=== PATIENT | female | born 1990 | race African-American/Black ===

== ENCOUNTER 2021-10-16 09:04 | Emergency (ER) | payer OTHER ==
--- OUTSIDE RECORDS SUMMARY | 2021-10-16 09:10 | XMS REPORT | Continuity of Care Document ---
:1990 Author Organization [facility] t Address [address] [place] [address] Care Team Providers Name Role Phone CAT Primary Care Physician Unavailable Semaj Attending Clinician Unavailable BECERRA, S Attending Clinician Unavailable Jayden WALDEN, S Attending Clinician Rutmeg_L Attending Clinician Unavailable JEREMIE Attending Clinician Unavailable Semaj Admitting Clinician Unavailable Rutledge_L Admitting Clinician Unavailable JEREMIE Admitting Clinician Unavailable Payers Payer Name Policy Type Policy Number Effective Date Expiration Date S reed [facility] PLUS [id number] 2021 00:00:00 [facility] [id number] 2018 COMMUNITY PLAN [place] 00:00:00 (MEDICAID HMO) [facility] 90 PRE-EMPLOYMENT Problems Condition Condition Condition Status Onset Resolution Last Treating Co mments Source Name Details Category Date Date Treatment Clinician Date COVID-19 Covid-19 Problem Active 2020-05 [place] 2-30 da 00:00: Medical 00 Group Twin Twin Problem Active 2018-05 [place] 1-21 da 00:00: Medical 00 Group Chromosome Chromosome Problem Active 2018-05 M [facility] abnormalit Abnormalit 1-21 da y y 00:00: Medical screening Screening 00 Grou p Dichorioni Dichorioni Problem Active 2018-05 M [place] c c 0-23 da diamniotic Diamniotic 00:00: Me dical twin Twin 00 Group Urine Urine Problem Active 2018-05 [place] 0-04 da test Test 00:00: Medical positive Positive 00 Group Group B Group B Problem Active [place] Streptococ Streptococ 4-19 da cus cus 00:00: Medical carrier Carrier 00 Group Vaginal Vaginal Disease Active Univers spotting spotting 7-31 ity of 00:00: [place] 00 Medical [place] Conduct Conduct Disease Active Univers disorder, disorder, 2-07 ity of adolescent [place] onset type onset type 00 Ut dical Branch 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 Group Allergies, Adverse Reactions, Alerts Allergy Allergy Status Severity Reaction(s) Onset Inactive Treating Comm ents Source Name Type Date Date Clinician seafood DA Active SV throat [facility] swelling 3-25 [facility] 00:[facility]: [facility] [place] AVOCADO Allergy Active Facial [place] to swelling da [facility] Medical e Group Shrimp Allergy Active Facial [place] to swelling da [facility] Medical e Group NO KNOWN Drug Active Univers ALLERGIE Class ity of S [facility] Social History Social Habit Start Date Stop Date Quantity Comments Source Exposure to Not sure [facility] SARS-CoV-2 (event) Medica l Branch Sex Assigned At [birth year] [facility] 00:00:00 00:00:00 [facility] Smoking Status Start Date Stop Date Source Unknown if ever smoked [facility] Never Smoker [facility] Medications Ordered Filled Start Stop Current Ordering Indication Dosage Frequency Signature Comments Components Source Medication Medication Date Date Medication? Clinician (SIG) Name Name No known No Univers medications 2-23 ity of 18:57: [place] 44 [facility] aripiprazol aripiprazol No aripiprazo [place] e 10 mg e 10 mg le 10 mg da tablet TAKE tablet TAKE tablet Medical ONE (1) ONE (1) TAKE ONE Group TABLET(S) TABLET(S) (1) BY MOUTH AT BY MOUTH AT TABLET(S) BEDTIME. BEDTIME. BY MOUTH AT BEDTIME. escitalopra escitalopra No escitalopr [place] m 5 mg m 5 mg am 5 mg da tablet TAKE tablet TAKE tablet Medical ONE (1) ONE (1) TAKE ONE Group TABLET BY TABLET BY (1) TABLET MOUTH AT MOUTH AT BY MOUTH BEDTIME BEDTIME AT BEDTIME hydroxyzine hydroxyzine No hydroxyzin [place] HCl 25 mg HCl 25 mg e HCl 25 d a tablet TAKE tablet TAKE mg tablet Medical ONE (1) ONE (1) TAKE ONE Group TABLET BY TABLET BY (1) TABLET MOUTH THREE MOUTH THREE BY MOUTH TIMES A TIMES A THREE DAY, DAY, TIMES A NEEDED. NEEDED. DAY, NEEDED. Vital Signs Vital Name Observation Time Observation Value Comments Source Systolic blood 2021-07-11 00:24:00 112 mm[facility]Hg[facility] Diastolic blood 2021-07-11 00:24:00 48 mm[facility]Hg[facility] Heart rate 2021-07-11 00:24:00 70 /min [facility] Body temperature 2021-07-11 00:24:00 37.17 Ije [facility] Respiratory rate 2021-07-11 00:24:00 18 /min [facility] Body weight 2021-07-11 00:24:00 115.667 kg [facility] BMI 2021-07-11 00:24:00 39.94 kg/m2 [facility] Oxygen saturation in 2021-07-11 00:24:00 99 /min [facility] Arterial blood by [facility] Pulse oximetry Branch Height 2021-05-15 00:00:00 67 [in_i] [facility] BMI (Body Mass 2021-05-15 00:00:00 42.3 kg/m2 [facility] 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) Group Body Weight 2021-05-15 00:00:00 4320 [oz_av] [facility] BP Diastolic 2019-09-07 00:00:00 91 mm[Hg] [facility] Height 2019-09-07 00:00:00 67 [in_i] [facility] BMI (Body Mass 2019-09-07 00:00:00 40.4 kg/m2 [facility] Medical Index) Group BP Systolic 2019-09-07 00:00:00 136 mm[Hg] [facility] Body Weight 2019-09-07 00:00:00 258 [lb_av] [facility] BP Diastolic 2019-08-08 00:00:00 77 mm[Hg] [facility] Height 2019-08-08 00:00:00 67 [in_i] [facility] BP Systolic 2019-08-08 00:00:00 134 mm[Hg] [facility] Body Weight 2019-08-08 00:00:00 276 [lb_av] [facility] BP Diastolic 2019-07-22 00:00:00 69 mm[Hg] [facility] Height 2019-07-22 00:00:00 67 [in_i] [facility] BMI (Body Mass 2019-07-22 00:00:00 43.5 kg/m2 [facility] Medical Index) Group BP Systolic 2019-07-22 00:00:00 130 mm[Hg] [facility] Body Weight 2019-07-22 00:00:00 278 [lb_av] [facility] BP Diastolic 2019-07-11 00:00:00 86 mm[Hg] [facility] Height 2019-07-11 00:00:00 67 [in_i] [facility] BMI (Body Mass 2019-07-11 00:00:00 43.7 kg/m2 [facility] Medical Index) Group BP Systolic 2019-07-11 00:00:00 129 mm[Hg] [facility] Body Weight 2019-07-11 00:00:00 279 [lb_av] [facility] BP Diastolic 2019-07-06 00:00:00 74 mm[Hg] [facility] Height 2019-07-06 00:00:00 67 [in_i] [facility] BP Systolic 2019-07-06 00:00:00 128 mm[Hg] [facility] Body Weight 2019-07-06 00:00:00 277 [lb_av] [facility] BP Diastolic 2019-06-22 00:00:00 78 mm[Hg] [facility] Height 2019-06-22 00:00:00 67 [in_i] [facility] BMI (Body Mass 2019-06-22 00:00:00 43.3 kg/m2 [facility] Medical Index) Group BP Systolic 2019-06-22 00:00:00 111 mm[Hg] [facility] Body Weight 2019-06-22 00:00:00 276.5 [lb_av] [facility] BP Diastolic 2019-05-25 00:00:00 74 mm[Hg] [facility] Height 2019-05-25 00:00:00 67 [in_i] [facility] BMI (Body Mass 2019-05-25 00:00:00 42.8 kg/m2 [facility] Medical Index) Group BP Systolic 2019-05-25 00:00:00 114 mm[Hg] [facility] Body Weight 2019-05-25 00:00:00 273 [lb_av] [facility] BP Diastolic 2019-04-27 00:00:00 70 mm[Hg] [facility] Height 2019-04-27 00:00:00 67 [in_i] [facility] BMI (Body Mass 2019-04-27 00:00:00 43.2 kg/m2 [facility] Medical Index) Group BP Systolic 2019-04-27 00:00:00 116 mm[Hg] [facility] Body Weight 2019-04-27 00:00:00 276.1 [lb_av] [facility] BP Diastolic 2019-04-20 00:00:00 88 mm[Hg] [facility] Height 2019-04-20 00:00:00 67 [in_i] [facility] BMI (Body Mass 2019-04-20 00:00:00 42.8 kg/m2 [facility] Medical Index) Group BP Systolic 2019-04-20 00:00:00 137 mm[Hg] [facility] Body Weight 2019-04-20 00:00:00 273.4 [lb_av] [facility] BP Diastolic 2019-04-06 00:00:00 65 mm[Hg] [facility] Height 2019-04-06 00:00:00 67 [in_i] [facility] BMI (Body Mass 2019-04-06 00:00:00 43.7 kg/m2 [facility] Medical Index) Group BP Systolic 2019-04-06 00:00:00 102 mm[Hg] [facility] Body Weight 2019-04-06 00:00:00 279 [lb_av] [facility] BP Diastolic 2019-03-09 00:00:00 74 mm[Hg] [facility] Height 2019-03-09 00:00:00 67 [in_i] [facility] BMI (Body Mass 2019-03-09 00:00:00 43.2 kg/m2 [facility] Medical Index) Group BP Systolic 2019-03-09 00:00:00 119 mm[Hg] [facility] Body Weight 2019-03-09 00:00:00 275.7 [lb_av] [facility] BP Diastolic 2019-02-18 00:00:00 89 mm[Hg] [facility] Height 2019-02-18 00:00:00 67 [in_i] [facility] BMI (Body Mass 2019-02-18 00:00:00 43.4 kg/m2 [facility] Medical Index) Group BP Systolic 2019-02-18 00:00:00 125 mm[Hg] [facility] Body Weight 2019-02-18 00:00:00 277.2 [lb_av] [facility] BP Diastolic 2018-09-28 00:00:00 68 mm[Hg] [facility] Height 2018-09-28 00:00:00 67 [in_i] [facility] BMI (Body Mass 2018-09-28 00:00:00 42.6 kg/m2 [facility] Medical Index) Group BP Systolic 2018-09-28 00:00:00 114 mm[Hg] [facility] Body Weight 2018-09-28 00:00:00 272.1 [lb_av] [facility] BP Diastolic 2018-09-03 00:00:00 66 mm[Hg] [facility] Height 2018-09-03 00:00:00 67 [in_i] [facility] BMI (Body Mass 2018-09-03 00:00:00 42.9 kg/m2 [facility] Medical Index) Group BP Systolic 2018-09-03 00:00:00 123 mm[Hg] [facility] Body Weight 2018-09-03 00:00:00 274 [lb_av] [facility] BP Diastolic 2018-08-20 00:00:00 76 mm[Hg] [facility] Height 2018-08-20 00:00:00 67 [in_i] [facility] BMI (Body Mass 2018-08-20 00:00:00 42.4 kg/m2 [facility] Medical Index) Group BP Systolic 2018-08-20 00:00:00 128 mm[Hg] [facility] Body Weight 2018-08-20 00:00:00 271 [lb_av] [facility] BP Diastolic 2018-06-01 00:00:00 71 mm[Hg] [facility] Height 2018-06-01 00:00:00 67 [in_i] [facility] BMI (Body Mass 2018-06-01 00:00:00 42.4 kg/m2 [facility] Medical Index) Group BP Systolic 2018-06-01 00:00:00 124 mm[Hg] [facility] Body Weight 2018-06-01 00:00:00 4336 [oz_av] [facility] Procedures Procedure Date / Time Performing Clinician Source Performed ASSIGNMENT OF BENEFITS 2021-07-11 01:03:09 Doctor Unassigned, [facility] CONSENT/REFUSAL FOR 2021-07-11 00:22:04 Doctor Unassigned, [facility] DIAGNOSIS AND TREATMENT [facility] NOTICE OF PRIVACY 2021-07-11 00:21:14 Doctor Unassigned, [facility] PRACTICES [facility] [id number] 2019-08-23 00:00:00 [facility] [id number] 2019-08-23 00:00:00 PINPH [facility] US, obstetric, limited 2019-08-08 00:00:00 [facility] US, obstetric, limited 2019-07-22 00:00:00 [facility] US(FBP)W/0 NON STRESS 2019-07-11 00:00:00 [facility] Medical TEST Group unlisted imaging order 2019-07-06 00:00:00 [facility] US, obstetric, limited 2019-06-22 00:00:00 [facility] US, obstetric, limited 2019-04-27 00:00:00 [facility] Group ULTRASOUND, 2019-04-27 00:[facility]00 [facility] UTERUS REAL TIME WITH Group IMAGE DOC, AND MATERNAL EVAL PLUS DETAILED ANATOMIC EXAMINATION, TRANSABDOMINAL APPROACH; SINGLE OR FIRST GESTATION US, obstetric, limited 2019-04-06 00:00:00 [facility] [employer] [facility] US, obstetric, limited 2019-03-09 00:00:00 [facility] [employer] Medical Group ULTRASOUND, 2018-09-28 00:00:00 [facility] UTERUS REAL TIME WITH Group IMAGE DOCUMENTAITON, TRANSVAGINAL ULTRASOUND, 2018-09-03 00:00:00 [facility] UTERUS REAL TIME WITH Group IMAGE DOCUMENTAITON, TRANSVAGINAL Plan of Care Planned Activity Planned Date Details Comments Source Diagnostic Test 2021-05-15 rapid SARS CoV + SARS [facility] Pending 00:00:00 CoV 2 Ag, QL IA, Group respiratory specimen [code = rapid SARS CoV + SARS CoV 2 Ag, QL [place], respiratory specimen] Encounters Start End Encounter Admission Attending Care Care Encounter Source Date/Time Date/Time Type Type Clinicians Facility Department ID 2019-08-10 Inpatient MASOOD Cha, [facility] [id number] [facility] 15:07:00 Loly [id number] [facility] 2021-07-10 2021-07-10 Emergency X CINDI BECERRA ERT [id number] Univers 18:26:00 19:45:00 SERGEY [facility] 2021-07-10 2021-07-10 Emergency CINDI Becerra [id number] Univers 18:26:00 19:45:00 Sergey Hedrick [place] [id number] i [facility] [id number] [facility] [id number] [facility] 084 Branch 2021-05-15 2021-05-15 Outpatient Rutledge_L MMG MM [id number] [place] 11:32:00 11:32:00 1229 da Medical Group 2021-05-15 2021-05-15 Deborah [facility] [place] - [id number] [place] 00:00:00 00:00:00 Discovery Michael da LIFE SCIENCE TECHNICIAN-C: 600 [facility] [place] - [address], [facility] [place] [address] , Ph. 2021-05-14 2021-05-14 Outpatient LISTER_MELI MEHOP MEHOP [id number] [place] 11:59:00 11:59:00 [facility] 2021-05-14 2021-05-14 Outpatient Rutledge_L MMG MM [id number] [place] 05:24:00 05:24:00 1228 Medical Group 2021-05-08 2021-05-08 Outpatient LISTER_MELI MEHOP MEHOP [id number] [place] 08:18:00 08:18:00 [facility]SA 1222 [facility] 2021-02-04 2021-02-04 Outpatient LISTER_MELI MEHOP MEHOP [id number] [place] 12:12:00 12:12:00 SSA 0920 [facility] 2020-11-16 2020-11-16 Outpatient LISTER_MELI MEHOP MEHOP [id number] [place] 12:14:00 12:14:00 SSA 0702 [facility] 2020-09-11 2020-09-11 Outpatient LISTER_MELI MEHOP MEHOP [id number] [place] 02:34:00 02:34:00 SSA 0427 [facility] 2020-07-14 2020-07-14 Outpatient Rutledge_L MMG MM [id number] [place] 12:00:00 12:00:00 0227 da Medical Group 2020-04-27 2020-04-27 Outpatient LISTER_MELI MEHOP MEHOP [id number] [place] 04:17:00 04:17:00 SSA 1211 [facility] 2020-04-04 2020-04-04 Outpatient Rutledge_L MMG MMG [id number] [place] 02:43:00 02:43:00 1118 da [facility] 2020-01-28 2020-01-28 Outpatient LISTER_MELI MEHOP MEHOP [id number] [place] 02:48:00 02:48:00 SSA 0912 [facility] 2019-10-03 2019-10-03 Outpatient LISTER_MELI MEHOP MEHOP [id number] [place] 12:33:00 12:33:00 SSA 0518 [facility] 2019-09-20 2019-09-20 Outpatient Rutledge_L MMG MMG [id number] [place] 05:47:00 05:47:00 0505 [facility] 2019-09-07 2019-09-07 Outpatient Rutledge_L MMG MMG [id number] [place] 07:34:00 07:34:00 0422 Medical Group 2019-09-07 2019-09-07 Aurea [facility] [place] - [id number] M atagor 00:00:00 00:00:00 Jose Luis Stringer Medical Medica jacob PILLAI: [address] [place] [address] [address], [place] [address] , Ph. [phone] 2019-08-24 2019-08-24 Outpatient Rutledge_L MMG MMG [id number] [place] 02:43:00 02:43:00 0408 [facility] 2019-08-09 2019-08-09 Outpatient Rutledge_L MMG MMG [id number] [place] 04:13:00 04:13:00 0324 [facility] 2019-08-08 2019-08-08 Outpatient Rutledge_L MMG MMG [id number] [place] 04:17:00 04:17:00 0323 [facility] Group 2019-08-08 2019-08-08 Aurea [facility] [place] - [id number] M [facility] 00:00:00 00:00:00 Jose Luis [facility] Medical Medica jacob MD: [address] [address] , Ph. [phone] 2019-08-03 2019-08-03 Outpatient Rutledge_L MMG MMG [id number] [place] 02:32:00 02:32:00 0318 [facility] 2019-07-25 2019-07-25 Outpatient Rutledge_L MMG MMG [id number] [place] 11:46:00 11:46:00 0309 [facility] 2019-07-22 2019-07-22 Outpatient Rutledge_L MMG MMG [id number] [place] 11:18:00 11:18:00 0306 [facility] 2019-07-22 2019-07-22 Aurea [facility] [place] - [id number] M [facility] 00:00:00 00:00:00 Jose Luis Stringer Medical Medica jacob MD: [address] [address] , Ph. [phone] 2019-07-12 2019-07-12 Outpatient Rutledge_L MMG MMG [id number] [place] 10:40:00 10:40:00 0305 [facility] 2019-07-12 2019-07-12 Outpatient Rutledge_L MMG MMG [id number] [place] 10:40:00 10:40:00 0225 [facility] 2019-07-12 2019-07-12 Outpatient Rutledge_L MMG MMG [id number] [place] 10:40:00 10:40:00 0303 [facility] 2019-07-11 2019-07-11 Outpatient Rutledge_L MMG MMG [id number] [place] 05:34:00 05:34:00 0224 da Medical Group 2019-07-11 2019-07-11 Aurea [facility] [place] - [id number] M [facility] 00:00:00 00:00:00 Jose Luis Stringer Medical Medica jacob MD: [address] [facility] [address] [facility], [place] [address] , Ph. [phone] 2019-07-06 2019-07-06 Outpatient Rutledge_L MMG MMG [id number] [place] 10:52:00 10:52:00 0219 da Medical Group 2019-07-06 2019-07-06 Aurea [facility] [place] - [id number] M [facility] 00:00:00 00:00:00 Jose Luis Stringer Medical Medica jacob MD: [address] [address], [place] [address] , Ph. [phone] 2019-06-22 2019-06-22 Outpatient Rutledge_L MMG MMG [id number] [place] 09:20:00 09:20:00 0205 da Medical Group 2019-06-22 2019-06-22 Outpatient Rutledge_L MMG MMG [id number] [place] 09:20:00 09:20:00 0218 [facility] Medical [facility] 2019-06-22 2019-06-22 Aurea [facility] [place] - [id number] M [facility] 00:00:00 00:00:00 Jose Luis Stringer Medical Medica jacob MD: [address] [facility] [address] [facility], [place] [address] , Ph. [phone] 2019-06-16 2019-06-16 Outpatient Rutledge_L MMG MMG [id number] [place] 02:36:00 02:36:00 0130 [facility] 2019-06-16 2019-06-16 Outpatient Rutledge_L MMG MMG [id number] [place] 02:36:00 02:36:00 0204 [facility] 2019-05-28 2019-05-28 Outpatient Rutledge_L MMG MMG [id number] [place] 11:03:00 11:03:00 0111 [facility] 2019-05-25 2019-05-25 Outpatient Rutledge_L MMG MMG [id number] [place] 05:09:00 05:09:00 0108 [facility] 2019-05-25 2019-05-25 Aurea [facility] [place] - [id number] M atagor 00:00:00 00:00:00 Jose Luis Stringer Medical Medica jacob MD: [address] [place] [address] , Ph. [phone] 2019-04-27 2019-04-27 Aurea [facility] [place] - [id number] M [facility]or 00:00:00 00:00:00 Jose Luis Stringer Medical Medica jacob MD: [address] [place] [address] , Ph. [phone] 2019-04-20 2019-04-20 Aurea [facility] [place] - [id number] M [facility] 00:00:00 00:00:00 Jose Luis Stringer Medical Mediclatrell james MD: [address] [place] [address] , Ph. [phone] 2019-04-06 2019-04-06 Johana Chairez [facility] [place] - [id number] [place] 00:00:00 00:00:00 Discovery elie Rivas WHNP: [address] [place] [address] , Ph. [phone] 2019-03-09 2019-03-09 Theodore [facility] [place] - [id number] M [facility] 00:00:00 00:00:00 Discovery elie Ruiz MD: [address] [place] [address] , Ph. [phone] 2019-02-18 2019-02-18 Johana Chairez MM [place] - [id number] [place] 00:00:00 00:00:00 Discovery elie Rivas WHNP: [address] [place] [address] , Ph. [phone] 2018-09-30 2018-09-30 [facility] [place] - [id number] M at[place]or 00:00:00 00:00:00 Jose Luis Stringer Medical Mediclatrell james MD: [address] [place] [address] , Ph. [phone] 2018-09-28 2018-09-28 [facility] [place] - [id number] M [facility] 00:00:00 00:00:00 Oswaldo Watson MD: [address] [place] [address] , Ph. [phone] 2018-09-03 2018-09-03 [facility] [place] - [id number] M atagor 00:00:00 00:00:00 Oswaldo Watson MD: [address] [place] [address] , Ph. [phone] 2018-08-20 2018-08-20 [facility] [place] - [id number] M [facility] 00:00:00 00:00:00 Oswaldo Watson Mediclatrell james MD: [address] [place] [address] , Ph. [phone] 2018-06-01 2018-06-01 [facility] [place] - [id number] M [facility] 00:00:00 00:00:00 Discovery elie Londono PATRON ATTENDANT: [address] [place] [phone] , Ph. Results Test Description Test Time Test Comments Results Result Comments Source SARS-CoV+SARS-CoV-2 (COVID-19) Ag [Presence] in Respiratory 2021-05-15 14:27:00 specimen by Rapid immunoassay Test Item Value Reference Range Interpretation Comme nts SARS-CoV - 2 (test code = SARS-CoV - 2) [facility] [id number] 11:24:00 RUN DATE: 08/30/19 [facility] PAGE 1 RUN TIME: 1724 Specimen Inquiry RUN USER: INTERFACE PATIENT: ROQUE AGUILA LOC: [facility] U #: [id number] AGE/SX: 29/F ROOM: [facility] RE08/10/19REG DR: Loly Cha MD : 90 BED: A DIS: 08/27/19 STATUS: DIS IN TLOC: SPEC #: [id number] RECD: 08/24/19 STATUS: SOUJuan REQ #: [id number] JORDYN: 08/23/19- SUBM DR: Loly Cha MD ENTERED: 08/24/19 SP TYPE: PLACIII OTHR DR: Matthew Daniel MD, Damien M MDORDERED: LEVEL V SURGICA CODES: [id number] - PLACENTA, NOS COPIES TO: Loly Cha MD [address] [place] [address] [email or web address] Matthew Daniel MD [address] [facility] [address] [place] [address] [email or web address] Jose Angel Mary MD [address] [place] [address] PROCEDURES: LEVEL V SURGICA (Incomplete) TISSUES: PLACENTA, NOS - PLACENTA/RIGHT AND LEFT TUBES CLINICAL HISTORY 29 year old, 32.5 weeks,[id number], section, di-di twins, prematurity <37 weeks (wpd) FINAL DIAGNOSIS Specimen #1 right fallopian tube, segmental resection: - completely transected lumen Specimen #2 left fallopian tube, segmental resection: - completely transected lumen Specimen #3 placentas, twin gestation: - dichorionic diamniotic, fused - combined placental weight: 608 gm/expected 644 gm CONTINUED ON NEXT PAGE --RUN DATE: 08/30/19 [facility] PAGE 2 RUN TIME: 1724 Specimen Inquiry RUN USER: INTERFACE SPEC #: [id number] PATIENT: ROQUE AGUILA #[id number] (C ontinued) FINAL DIAGNOSIS (Continued) Placenta #1 (1 cord clamp): - latethird trimester villous architecture - no inflammation of umbilical cord or membranes - intervillous fibrin thrombus - umbilical cord: insertion 6 cm from margin, 3-vessel, 24 cm length - actual placental weight: actual 268 gm Placenta #2 (2 cord clamps): - late third trimester villous architecture - no inflammation of umbilical cord or membranes - intervillous fibrin thrombus - umbilical cord: insertion 5 cm from mary n, 3-vessel, 11 cm length - actual placental weight: actual 340 gm CPT code(s): 70777 x2, 15054 x2 cds/kr GROSS DESCRIPTION ANATOMIC SOURCE OF TISSUE (per Requisition): 1.Right and left fallopian tubes (received in 2 containers) 2. Placenta Each specimen is labeled with the patient's name and medical record number. Specimen #1 is designated "right" and consists of a 0.8 x 0.7 x 0.3 cm segment of fallopian tube. It is transversely sectioned into three pieces and submitted in toto in A1. Specimen #2 is designated "left" and consists of a 0.6 x 0.7 x 0.3 cm segment of fallopian tube. It is transversely sectioned into two pieces and submitt ed in toto in B1. Specimen #3 is received in a container, labeled with the patient's name and designated "placenta, twins". The specimen consists of two fused placentas with membranes, twoumbilical cords and hennessy, thickened and opaque dividing membranes between surfaces attached.The placenta with one cord clamp is designated as placenta #1 and the one with two cord clamps as placenta #2. The placentas are separate along the dividing membrane insertion line. The followingattributes are observed: PLACENTA #1 (1 cord clamp): Cord insertion: 6 cm from placental margin Cord length: 24 cm Number of vessels: 3 Cord color: Blue-hennessy, slightly green CONTINUED ON NEXT PAGE RUN DATE: 08/30/19 [facility] PAGE 3 RUN TIME: 1724 Specimen Inquiry RUN USER: INTERFACE SPEC #: [id number] PATIENT: ROQUE AGUILA R #[id number] (Continued) GROSS DESCRIPTION (Continued) Other cord findings: None surface findings: Steel blue, wrinkled, glistening Vasculature: Displays unremarkable bloodvasculature Membranes rupture site: 4 cm to margin Membrane color:Hennessy Other membrane findings: Thickened and opaque The trimmed placental weight: 268 gm Disk measurement: 17 x 10 x 2.9 cm in greatest dimension Accessory lobes: None Maternal surface: Lobulated, intact and contains a paracentral, hennessy, firm lesion measuring 0.5 cm (in C4) Parenchyma: Red, beefy, and spongy Parenchyma lesions: None Cassettes: C1 through C4 PLACENTA #2 (2 cord clamps): Cord insertion: 5 cm from closest placental margin Cord length: 11 cm Number of vessels: 3 Cord color: Blue-hennessy, slightly green Other cord findings: None surface findings: Steel blue, wrinkled, glistening Vasculature: Displays unremarkable blood vasculature Membranes rupture site: 11 cm to margin Membrane color: Hennessy Other membrane findings: Thickened and opaque The trimmed placental weight: 340 gm Disk measurement: 20 x 12 x 3 cm in greatest dimension Accessory lobes: None Maternal surface: Lobulated, intact and contains pinpoint calcium deposits Parenchyma: Red, beefy, and spongy Parenchyma lesions: None Cassettes: C5 through C8 zulay/wpnicola 08/24/19 Signed Paxton Vides 08/29/19 1124 END OF REPORT HGB [id number] 04:59:00 Test Item Value Reference Range Interpretation Comments HEMOGLOBIN (test code = HGB) 10.8 g/dL 10.7-13.9 N HEMATOCRIT (test code = HCT) 36.1 % 32.1-42.1 N CAPILLARY BLOOD [id number] 18:26:00 Test Item Value Reference Range Interpretation Comments CAPILLARY BLOOD GAS PH (test code 7.380 7.35-7.45 N = PHC) CAPILLARY BLOOD GAS PCO2 (test 33.4 mmHg code = PCO2C) CAPILLARY BLOOD GAS PO2 (test code 46.1 mmHg = PO2C) CBG HCO3 (test code = HCO3C) 19.3 meq/L CBG BASE EXCESS (test code = BEC) -4.8 CBG O2 SATURATION (test code = 81.8 % SATC) CAPILLARY BLOOD GAS TYPE (test CBLV code = TYPEC) CAPILLARY BLOOD GAS FIO2 (test 21.0 % code = FIO2C) VENOUS BLOOD [id number] 18:22:00 Test Item Value Reference Range Interpretation Comments VENOUS BLOOD GAS PH (test code = 7.293 7.31-7.41 L PHV) VENOUS BLOOD GAS PCO2 (test code = 44.6 mmHg PCO2V) VENOUS BLOOD GAS PO2 (test code = 16.0 mmHg PO2V) VBG HCO3 (test code = HCO3V) 21.1 meq/L VBG BASE EXCESS (test code = CAITLIN) -5.4 2.0 to +2.0 L VENOUS BLOOD GAS OS SAT. (test 18.5 % code = O2SATV) VENOUS BLOOD GAS TYPE (test code = Venous TYPEV) VENOUS BLOOD GAS FIO2 (test code = 21.0 % FIO2V) CBC W/MANUAL [id number] 11:06:00 Test Item Value Reference Range Interpretation Comments WHITE BLOOD CELL (test code = WBC) 12.0 K/mm3 6.6-12.1 N RED BLOOD CELL (test code = RBC) 4.23 M/mm3 3.45-5.01 N HEMOGLOBIN (test code = HGB) 10.2 g/dL 10.7-13.9 L HEMATOCRIT (test code = HCT) 34.6 % 32.1-42.1 N MEAN CELL VOLUME (test code = MCV) 82 fL 84.1-94.8 L MEAN CELL HGB (test code = MCH) 24.1 pg 27-35 L MEAN CELL HGB CONCETRATION (test 29.5 gm/dL 32.2-34.1 L code = MCHC) RED CELL DISTRIBUTION WIDTH (test 18.1 % 12.4-16.5 H code = RDW) PLATELET COUNT (test code = PLT) 274 K/mm3 133-385 N MEAN PLATELET VOLUME (test code = 9.9 fl 9.1-12.7 N MPV) TOTAL CELLS COUNTED (test code = 100 #CELLS TCC) SEGMENTED NEUTROPHILS (test code = 67 % 56.5-79.4 N SEG) LYMPHOCYTE (test code = LYMPH) 29 % 20-40 N MONOCYTE (test code = MON) 4 % 0-8 N CBC W/MANUAL [id number] 10:59:00 Test Item Value Reference Range Interpretation Comments WHITE BLOOD CELL (test code = WBC) 12.0 K/mm3 6.6-12.1 N RED BLOOD CELL (test code = RBC) 4.23 M/mm3 3.45-5.01 N HEMOGLOBIN (test code = HGB) 10.2 g/dL 10.7-13.9 L HEMATOCRIT (test code = HCT) 34.6 % 32.1-42.1 N MEAN CELL VOLUME (test code = MCV) 82 fL 84.1-94.8 L MEAN CELL HGB (test code = MCH) 24.1 pg 27-35 L MEAN CELL HGB CONCETRATION (test 29.5 gm/dL 32.2-34.1 L code = MCHC) RED CELL DISTRIBUTION WIDTH (test 18.1 % 12.4-16.5 H code = RDW) PLATELET COUNT (test code = PLT) 274 K/mm3 133-385 N MEAN PLATELET VOLUME (test code = 9.9 fl 9.1-12.7 N MPV) SEGMENTED NEUTROPHILS (test code = % 56.5-79.4 SEG) LYMPHOCYTE (test code = LYMPH) % 20-40 [id number] 05:01:00 Test Item Value Reference Range Interpretation Comments MAGNESIUM (test code = 3.9 mg/dL 1.8-2.4 H Resul ts verified by MAG) repeat analysis DRUGS OF ABUSE [id number] 23:20:00 Test Item Value Reference Range Interpretation Comments UR COCAINE (test code = NEGATIVE NEGATIVE DETE CTION CUT OFF: COCAU) 150 ng/mL UR CANNABINOIDS (test NEGATIVE NEGATIVE DETECT ION CUT OFF: code = CANU) 50 ng/mL UR AMPHETAMINE (test code NEGATIVE NEGATIVE DE TECTION CUT OFF: = AMPHU) 500 ng/mL UR BARBITURATE QUAL (test NEGATIVE NEGATIVE DE TECTION CUT OFF: code = BARBQLU) 200 ng/mL UR BENZODIAZEPINE (test NEGATIVE NEGATIVE DETE CTION CUT OFF: code = BENZU) 150 ng/mL UR OPIATES QUAL (test NEGATIVE NEGATIVE DETECT ION CUT OFF: code = OPIAQLU) 100 ng/mL UR PHENCYCLIDINE (PCP) NEGATIVE NEGATIVE DETEC TION CUT OFF: (test code = PHENCU) 25 ng/m L AG HEPATITIS B [id number] 20:06:00 Test Item Value Reference Range Interpretation Comments AG HEPATITIS B SURFACE (test code NONREACTIVE NONREACTIVE = HBSAG) AB HEPATITIS C [id number] 20:06:00 Test Item Value Reference Range Interpretation Comments AB HEPATITIS C (test code = NONREACTIVE NONREACTIVE HCVAB) SIGNAL TO CUTOFF (test code = 0.08 <0.80 N CUTOFF) AB [id number] 20:06:00 Test Item Value Reference Range Interpretation Comments AB TREPONEMA (test code = TREPAB) NONREACTIVE NONREACTIVE AB HIV 1 19:42:00 Test Item Value Reference Range Interpretation Comments AB HIV 1 2 (test NONREACTIVE NONREACTIVE [facility] code = [id number]) 4th Gen HIV Ag/Ab Combo Screen IS CONSENT FORM SIGNED FOR HIV TESTING? YAG HEPATITIS B [id number] 19:42:00 Test Item Value Reference Range Interpretation Comments AG HEPATITIS B SURFACE (test code NONREACTIVE NONREACTIVE = HBSAG) AB HEPATITIS C [id number] 19:42:00 Test Item Value Reference Range Interpretation Comments AB HEPATITIS C (test code = HCVAB) NONREACTIVE SIGNAL TO CUTOFF (test code = CUTOFF) <0.80 AB [id number] 19:42:00 Test Item Value Reference Range Interpretation Comments AB TREPONEMA (test code = TREPAB) NONREACTIVE NONREACTIVE CBC W/AUTO [id number] 18:12:00 Test Item Value Reference Range Interpretation Comments WHITE BLOOD CELL (test code = WBC) 8.9 K/mm3 6.6-12.1 N RED BLOOD CELL (test code = RBC) 4.57 M/mm3 3.45-5.01 N HEMOGLOBIN (test code = HGB) 10.9 g/dL 10.7-13.9 N HEMATOCRIT (test code = HCT) 36.9 % 32.1-42.1 N MEAN CELL VOLUME (test code = MCV) 81 fL 84.1-94.8 L MEAN CELL HGB (test code = MCH) 23.9 pg 27-35 L MEAN CELL HGB CONCETRATION (test 29.5 gm/dL 32.2-34.1 L code = MCHC) RED CELL DISTRIBUTION WIDTH (test 15.2 % 12.4-16.5 N code = RDW) PLATELET COUNT (test code = PLT) 335 K/mm3 133-385 N MEAN PLATELET VOLUME (test code = 9.7 fl 9.1-12.7 N MPV) NEUTROPHIL % (test code = NT%) 75.3 % 56.5-79.4 N LYMPHOCYTE % (test code = LY%) 21.6 % 14.3-34.3 N MONOCYTE % (test code = MO%) 2.5 % 5.1-10.4 L EOSINOPHIL % (test code = EO%) 0.0 % 0.1-3.0 L BASOPHIL % (test code = BA%) 0.1 % 0.1-1.0 N NEUTROPHIL # (test code = NT#) 6.7 K/mm3 LYMPHOCYTE # (test code = LY#) 1.9 K/mm3 MONOCYTE # (test code = MO#) 0.2 K/mm3 EOSINOPHIL # (test code = EO#) 0 K/mm3 BASOPHIL # (test code = BA#) 0.0 K/mm3 RBC MORPHOLOGY REQUIRED (test code NORMAL NORMAL = RBCM) PLATELET MORPHOLOGY REQUIRED (test NORMAL NORMAL code = PLTMR) CBC W Auto Differential panel - [id number] 04:57:00 Test Item Value Reference Range Interpretation Comments white blood count (test code = 9.3 K/uL 4.0-11.5 white blood count) red blood count (test code = red 4.23 M/uL 3.80-5.20 blood count) hemoglobin (test code = 9.9 g/dL 10.5-15.7 L hemoglobin) hematocrit (test code = 33.2 % 34.0-50.0 L hematocrit) MCV [Entitic volume] (test code = 78.5 fL 86-100 L 29274-9) mean corpuscular hemoglobin (test 23.4 pg 26.2-33.4 L code = mean corpuscular hemoglobin) mean corpuscular HGB conc (test 29.8 g/dL 30-34 L code = mean corpuscular HGB conc) red cell distribution width (test 15.0 % 12.0-15.5 code = red cell distribution width) platelet count (test code = 311 K/uL 165-450 platelet count) mean platelet volume (test code = 9.1 fL 9.4-12.6 L mean platelet volume) Segmented neutrophils/100 51.2 % 44.4-80.1 leukocytes in Blood (test code = 40352-2) Immature granulocytes [#/volume] 0.0 K/uL 0.0-0.03 in Blood (test code = 49969-7) lymphocyte% (test code = 39.0 % 10.0-50.0 lymphocyte%) mono % (test code = mono %) 8.0 % 3.6-12.0 eos % (test code = eos %) 1.2 % 0.0-5.4 Basophils/100 leukocytes in 0.3 % 0.1-1.2 Unspecified specimen (test code = 20175-3) Band form neutrophils [#/volume] 4.77 K/uL 1.56-6.13 in Blood (test code = 02782-5) Lymphocytes [#/volume] in 3.6 K/uL 1.18-3.74 Unspecified specimen by Automated count (test code = 46628-8) mono # (test code = mono #) 0.75 K/uL 0.24-0.86 eos # (test code = eos #) 0.11 K/uL 0.04-0.36 basophil # (test code = basophil 0.03 K/uL 0.01-0.08 #) NRBC% (test code = NRBC%) 0 /100 WBC 0-0.2 NRBC# (test code = NRBC#) 0 K/uL [facility] W Auto Differential panel - [id number] 04:57:00 Test Item Value Reference Range Interpretation Comments white blood count (test code = 9.3 K/uL 4.0-11.5 white blood count) red blood count (test code = red 4.23 M/uL 3.80-5.20 blood count) hemoglobin (test code = 9.9 g/dL 10.5-15.7 L hemoglobin) hematocrit (test code = 33.2 % 34.0-50.0 L hematocrit) MCV [Entitic volume] (test code = 78.5 fL 86-100 L 76150-2) mean corpuscular hemoglobin (test 23.4 pg 26.2-33.4 L code = mean corpuscular hemoglobin) mean corpuscular HGB conc (test 29.8 g/dL 30-34 L code = mean corpuscular HGB conc) red cell distribution width (test 15.0 % 12.0-15.5 code = red cell distribution width) platelet count (test code = 311 K/uL 165-450 platelet count) mean platelet volume (test code = 9.1 fL 9.4-12.6 L mean platelet volume) Segmented neutrophils/100 51.2 % 44.4-80.1 leukocytes in Blood (test code = 21197-7) Immature granulocytes [#/volume] 0.0 K/uL 0.0-0.03 in Blood (test code = 64303-3) lymphocyte% (test code = 39.0 % 10.0-50.0 lymphocyte%) mono % (test code = mono %) 8.0 % 3.6-12.0 eos % (test code = eos %) 1.2 % 0.0-5.4 Basophils/100 leukocytes in 0.3 % 0.1-1.2 Unspecified specimen (test code = 29784-5) Band form neutrophils [#/volume] 4.77 K/uL 1.56-6.13 in Blood (test code = 96249-5) Lymphocytes [#/volume] in 3.6 K/uL 1.18-3.74 Unspecified specimen by Automated count (test code = 18046-0) mono # (test code = mono #) 0.75 K/uL 0.24-0.86 eos # (test code = eos #) 0.11 K/uL 0.04-0.36 basophil # (test code = basophil 0.03 K/uL 0.01-0.08 #) NRBC% (test code = NRBC%) 0 /100 WBC 0-0.2 NRBC# (test code = NRBC#) 0 K/uL [facility] W Auto Differential panel - [id number] 04:57:00 Test Item Value Reference Range Interpretation Comments white blood count (test code = 9.3 K/uL 4.0-11.5 white blood count) red blood count (test code = red 4.23 M/uL 3.80-5.20 blood count) hemoglobin (test code = 9.9 g/dL 10.5-15.7 L hemoglobin) hematocrit (test code = 33.2 % 34.0-50.0 L hematocrit) MCV [Entitic volume] (test code = 78.5 fL 86-100 L 63250-0) mean corpuscular hemoglobin (test 23.4 pg 26.2-33.4 L code = mean corpuscular hemoglobin) mean corpuscular HGB conc (test 29.8 g/dL 30-34 L code = mean corpuscular HGB conc) red cell distribution width (test 15.0 % 12.0-15.5 code = red cell distribution width) platelet count (test code = 311 K/uL 165-450 platelet count) mean platelet volume (test code = 9.1 fL 9.4-12.6 L mean platelet volume) Segmented neutrophils/100 51.2 % 44.4-80.1 leukocytes in Blood (test code = 71590-7) Immature granulocytes [#/volume] 0.0 K/uL 0.0-0.03 in Blood (test code = 23988-0) lymphocyte% (test code = 39.0 % 10.0-50.0 lymphocyte%) mono % (test code = mono %) 8.0 % 3.6-12.0 eos % (test code = eos %) 1.2 % 0.0-5.4 Basophils/100 leukocytes in 0.3 % 0.1-1.2 Unspecified specimen (test code = 28064-5) Band form neutrophils [#/volume] 4.77 K/uL 1.56-6.13 in Blood (test code = 87939-9) Lymphocytes [#/volume] in 3.6 K/uL 1.18-3.74 Unspecified specimen by Automated count (test code = 39323-7) mono # (test code = mono #) 0.75 K/uL 0.24-0.86 eos # (test code = eos #) 0.11 K/uL 0.04-0.36 basophil # (test code = basophil 0.03 K/uL 0.01-0.08 #) NRBC% (test code = NRBC%) 0 /100 WBC 0-0.2 NRBC# (test code = NRBC#) 0 [facility] in Unspecified specimen by Wet [id number] 04:30:00 Test Item Value Reference Range Interpretation Comments Microscopic observation no trichomonas, [Identifier] in yeast or clue cells Unspecified specimen by noted Wet preparation (test code = 680-9) [facility]Neisseria gonorrhoeae DNA [Presence] in Urine by FLAVIA with probe [id number] 04:30:00 Test Item Value Reference Range Interpretation Comments Chlamydia sp Ag [Presence] in CT not detected Unspecified specimen (test code = 39576-6) [id number] (test code = lxs5888) NG not detected [facility] observation [Identifier] in Unspecified specimen by Wet [id number] 04:30:00 Test Item Value Reference Range Interpretation Comments Microscopic observation no trichomonas, [Identifier] in yeast or clue cells Unspecified specimen by noted Wet preparation (test code = 680-9) [facility]achomat[facility]+Neisseria gonorrhoeae DNA [Presence] in Urine by FLAVIA with probe [id number] 04:30:00 Test Item Value Reference Range Interpretation Comments Chlamydia sp Ag [Presence] in CT not detected Unspecified specimen (test code = 54986-7) [id number] (test code = wsw5796) NG not detected [facility] observation [Identifier] in Unspecified specimen by Wet [id number] 04:30:00 Test Item Value Reference Range Interpretation Comments Microscopic observation no trichomonas, [Identifier] in yeast or clue cells Unspecified specimen by noted Wet preparation (test code = 680-9) [facility]ydia trachomat[facility]+Neisseria gonorrhoeae DNA [Presence] in Urine by FLAVIA with probe [id number] 04:30:00 Test Item Value Reference Range Interpretation Comments Chlamydia sp Ag [Presence] in CT not detected Unspecified specimen (test code = 48148-4) [id number] (test code = lyv3137) NG not detected [facility] GroupUrinalysis complete panel - [id number] 03:12:00 Test Item Value Reference Range Interpretation Comments Color of Urine by Auto (test light yellow code = 24993-5) Appearance of Urine (test code = clear clear 5767-9) Glucose [Presence] in Urine by negative negative Automated test strip (test code = 61488-7) Bilirubin.total [Mass/volume] in negative negative Urine (test code = 1978-6) Ketones [Mass/volume] in Urine =2 negative H by Automated test strip (test code = 31201-9) Specific gravity of Urine by 1.013 1.003-1.030 Automated test strip (test code = 18638-1) blood urine (test code = blood negative negative urine) pH of Urine (test code = 2756-5) 6.000 5-9 protein urine (UA) (test code = trace negative protein urine (UA)) Urobilinogen [Presence] in Urine normal 0.2-1.0 (test code = 55867-4) Nitrite [Presence] in Urine by negative negative Test strip (test code = 5802-4) Leukocyte esterase [Presence] in negative negative Urine by Automated test strip (test code = 77400-7) Erythrocytes [#/volume] in Urine =1-5 0-5 by Automated count (test code = 798-9) Leukocytes [#/area] in Urine =1-5 0-5 sediment by Automated count (test code = 53015-9) Epithelial cells [Presence] in =6-10 0-5 Urine sediment by Light microscopy (test code = 14052-0) Bacteria identified in Urine by small(1 none detect Culture (test code = 630-4) Casts [#/area] in Urine sediment =2-5 none detect by Automated count (test code = 88473-1) urine culture added? (test code no = urine culture added?) [facility]inal[facility] complete panel - [id number] 03:12:00 Test Item Value Reference Range Interpretation Comments Color of Urine by Auto (test light yellow code = 24196-6) Appearance of Urine (test code = clear clear 5767-9) Glucose [Presence] in Urine by negative negative Automated test strip (test code = 51156-8) Bilirubin.total [Mass/volume] in negative negative Urine (test code = 1978-) Ketones [Mass/volume] in Urine =2 negative H by Automated test strip (test code = 06914-0) Specific gravity of Urine by 1.013 1.003-1.030 Automated test strip (test code = 50182-9) blood urine (test code = blood negative negative urine) pH of Urine (test code = 2756-5) 6.000 5-9 protein urine (UA) (test code = trace negative protein urine (UA)) Urobilinogen [Presence] in Urine normal 0.2-1.0 (test code = 19830-5) Nitrite [Presence] in Urine by negative negative Test strip (test code = 5802-4) Leukocyte esterase [Presence] in negative negative Urine by Automated test strip (test code = 57180-5) Erythrocytes [#/volume] in Urine =1-5 0-5 by Automated count (test code = 798-9) Leukocytes [#/area] in Urine =1-5 0-5 sediment by Automated count (test code = 41951-5) Epithelial cells [Presence] in =6-10 0-5 Urine sediment by Light microscopy (test code = 91791-2) Bacteria identified in Urine by small(1 none detect Culture (test code = 630-4) Casts [#/area] in Urine sediment =2-5 none detect by Automated count (test code = 10142-0) urine culture added? (test code no = urine culture added?) [facility] GroupUrinalysis complete panel - [id number] 03:12:00 Test Item Value Reference Range Interpretation Comments Color of Urine by Auto (test light yellow code = 38395-1) Appearance of Urine (test code = clear clear 5767-9) Glucose [Presence] in Urine by negative negative Automated test strip (test code = 49088-7) Bilirubin.total [Mass/volume] in negative negative Urine (test code = 1978-6) Ketones [Mass/volume] in Urine =2 negative H by Automated test strip (test code = 34344-9) Specific gravity of Urine by 1.013 1.003-1.030 Automated test strip (test code = 92694-2) blood urine (test code = blood negative negative urine) pH of Urine (test code = 2756-5) 6.000 5-9 protein urine (UA) (test code = trace negative protein urine (UA)) Urobilinogen [Presence] in Urine normal 0.2-1.0 (test code = 99300-6) Nitrite [Presence] in Urine by negative negative Test strip (test code = 5802-4) Leukocyte esterase [Presence] in negative negative Urine by Automated test strip (test code = 90644-8) Erythrocytes [#/volume] in Urine =1-5 0-5 by Automated count (test code = 798-9) Leukocytes [#/area] in Urine =1-5 0-5 sediment by Automated count (test code = 42571-8) Epithelial cells [Presence] in =6-10 0-5 Urine sediment by Light microscopy (test code = 36599-7) Bacteria identified in Urine by small(1 none detect Culture (test code = 630-4) Casts [#/area] in Urine sediment =2-5 none detect by Automated count (test code = 11231-5) urine culture added? (test code no = urine culture added?) [facility] GroupHIV [facility]+2 Ab [Presence] in [id number] 09:55:00HIV P24 AgHIV-1/2 AbMatagorda Medical GroupReagin Ab [Presence] in Serum by RPR 2019-07-22 09:55:00 Test Item Value Reference Range Interpretation Comments Reagin Ab [Presence] in Serum by nonreactive nonreactive RPR (test code = 61498-5) [facility] GroupReagin Ab [Presence] in Serum by [id number] 09:55:00 RPR ConfirmationMatagorda Medical GroupHIV 1+2 Ab [Presence] in [id number] 09:55:00HIV P24 AgHIV-1/2 AbMatagorda Medical GroupReagin Ab [Presence] in Serum by [id number] 09:55:00 Test Item Value Reference Range Interpretation Comments Reagin Ab [Presence] in Serum by nonreactive nonreactive RPR (test code = 69985-0) [facility] GroupReagin Ab [Presence] in Serum by [id number] 09:55:00 RPR ConfirmationMatagorda Medical GroupCBC W Auto Differential panel - Blood 2019-07-22 09:45:00 Test Item Value Reference Range Interpretation Comments white blood count (test code = 7.5 K/uL 4.0-11.5 white blood count) red blood count (test code = red 4.11 M/uL 3.80-5.20 blood count) hemoglobin (test code = 9.8 g/dL 10.5-15.7 L hemoglobin) hematocrit (test code = 32.2 % 34.0-50.0 L hematocrit) MCV [Entitic volume] (test code = 78.3 fL 86-100 L 71394-1) mean corpuscular hemoglobin (test 23.8 pg 26.2-33.4 L code = mean corpuscular hemoglobin) mean corpuscular HGB conc (test 30.4 g/dL 30-34 code = mean corpuscular HGB conc) red cell distribution width (test 15.5 % 12.0-15.5 code = red cell distribution width) platelet count (test code = 291 K/uL 165-450 platelet count) mean platelet volume (test code = 8.7 fL 9.4-12.6 L mean platelet volume) Segmented neutrophils/100 58.8 % 44.4-80.1 leukocytes in Blood (test code = 84843-9) Immature granulocytes [#/volume] 0.0 K/uL 0.0-0.03 in Blood (test code = 18507-0) lymphocyte% (test code = 29.9 % 10.0-50.0 lymphocyte%) mono % (test code = mono %) 8.8 % 3.6-12.0 eos % (test code = eos %) 1.9 % 0.0-5.4 Basophils/100 leukocytes in 0.3 % 0.1-1.2 Unspecified specimen (test code = 18388-2) Band form neutrophils [#/volume] 4.40 K/uL 1.56-6.13 in Blood (test code = 99107-6) Lymphocytes [#/volume] in 2.2 K/uL 1.18-3.74 Unspecified specimen by Automated count (test code = 19668-0) mono # (test code = mono #) 0.66 K/uL 0.24-0.86 eos # (test code = eos #) 0.14 K/uL 0.04-0.36 basophil # (test code = basophil 0.02 K/uL 0.01-0.08 #) NRBC% (test code = NRBC%) 0 /100 WBC 0-0.2 NRBC# (test code = NRBC#) 0 [facility], method unspecified - [id number] 09:45:00NeutrophilsBandLymphocyteAtypical LymphMonocyteEosinophilBasophilMetamyelocyteMyelocyteBlastsNucleated Red Blood CellDifferential CommentPlatelet EstimatePlatelet MorphologyHypochromasiaPoikilocytosisAnisocytosisTarget CellsStomatocyteToxic GranulationBurr CellsRouleauToxic Vacuolationneutrophils-Pband -Plymphocytes-PAtypical ukcgxj-Umeongptzr-EHhqddfndpokHjexjrzaitwg comment-P [facility] W Auto Differential panel - [id number] 09:45:00 Test Item Value Reference Range Interpretation Comments white blood count (test code = 7.5 K/uL 4.0-11.5 white blood count) red blood count (test code = red 4.11 M/uL 3.80-5.20 blood count) hemoglobin (test code = 9.8 g/dL 10.5-15.7 L hemoglobin) hematocrit (test code = 32.2 % 34.0-50.0 L hematocrit) MCV [Entitic volume] (test code = 78.3 fL 86-100 L 12136-0) mean corpuscular hemoglobin (test 23.8 pg 26.2-33.4 L code = mean corpuscular hemoglobin) mean corpuscular HGB conc (test 30.4 g/dL 30-34 code = mean corpuscular HGB conc) red cell distribution width (test 15.5 % 12.0-15.5 code = red cell distribution width) platelet count (test code = 291 K/uL 165-450 platelet count) mean platelet volume (test code = 8.7 fL 9.4-12.6 L mean platelet volume) Segmented neutrophils/100 58.8 % 44.4-80.1 leukocytes in Blood (test code = 88262-9) Immature granulocytes [#/volume] 0.0 K/uL 0.0-0.03 in Blood (test code = 31882-4) lymphocyte% (test code = 29.9 % 10.0-50.0 lymphocyte%) mono % (test code = mono %) 8.8 % 3.6-12.0 eos % (test code = eos %) 1.9 % 0.0-5.4 Basophils/100 leukocytes in 0.3 % 0.1-1.2 Unspecified specimen (test code = 60189-6) Band form neutrophils [#/volume] 4.40 K/uL 1.56-6.13 in Blood (test code = 54768-1) Lymphocytes [#/volume] in 2.2 K/uL 1.18-3.74 Unspecified specimen by Automated count (test code = 28857-6) mono # (test code = mono #) 0.66 K/uL 0.24-0.86 eos # (test code = eos #) 0.14 K/uL 0.04-0.36 basophil # (test code = basophil 0.02 K/uL 0.01-0.08 #) NRBC% (test code = NRBC%) 0 /100 WBC 0-0.2 NRBC# (test code = NRBC#) 0 [facility], [facility] unspecified - [id number] 09:45:00NeutrophilsBandLymphocyteAtypical LymphMonocyteEosinophilBasophilMetamyelocyteMyelocyteBlastsNucleated Red Blood CellDifferential CommentPlatelet EstimatePlatelet MorphologyHypochromasiaPoikilocytosisAnisocytosisTarget CellsStomatocyteToxic GranulationBurr CellsRouleauToxic Vacuolationneutrophils-Pband -Plymphocytes-PAtypical efztcb-Mfeoreaaqp-KEytjezdzcsfJukabpsgvpml comment-P [facility] Biophysical profile panel [id number] 16:05:00 Test Item Value Reference Range Interpretation Comments Amniotic Fluid Index (test code = 2 (20.0) Amniotic Fluid Index) Tone (test code = Tone) 2 Breathing (test code = 2 Breathing) Movement (test code = 2 Movement) [facility] Biophysical profile panel [id number] 16:05:00 Test Item Value Reference Range Interpretation Comments Amniotic Fluid Index (test code = 2 (20.0) Amniotic Fluid Index) Tone (test code = Tone) 2 Breathing (test code = 2 Breathing) Movement (test code = 2 Movement) [facility] Biophysical profile panel [id number] 16:05:00 Test Item Value Reference Range Interpretation Comments Amniotic Fluid Index (test code = 2 (20.0) Amniotic Fluid Index) Tone (test code = Tone) 2 Breathing (test code = 2 Breathing) Movement (test code = 2 Movement) [facility] Biophysical profile panel [id number] 16:04:00 Test Item Value Reference Range Interpretation Comments Amniotic Fluid Index (test code = 2 (20.0) Amniotic Fluid Index) Tone (test code = Tone) 2 Breathing (test code = 2 Breathing) Movement (test code = 2 Movement) [facility] Biophysical profile panel [id number] 16:04:00 Test Item Value Reference Range Interpretation Comments Amniotic Fluid Index (test code = 2 (20.0) Amniotic Fluid Index) Tone (test code = Tone) 2 Breathing (test code = 2 Breathing) Movement (test code = 2 Movement) [facility] Biophysical profile panel [id number] 16:04:00 Test Item Value Reference Range Interpretation Comments Amniotic Fluid Index (test code = 2 (20.0) Amniotic Fluid Index) Tone (test code = Tone) 2 Breathing (test code = 2 Breathing) Movement (test code = 2 Movement) [facility] - [id number] 09:32:18 Test Item Value Reference Range Interpretation Comments Leukocytes (test code = Leukocytes) Negative Nitrite (test code = Nitrite) negative Urobilinogen (test code = .2 Urobilinogen) Protein (test code = Protein) Negative pH (test code = pH) 6.0 Blood (test code = Blood) Negative Specific [place] (test code = 1.030 Specific [place]) Ketone (test code = Ketone) Negative Bilirubin (test code = Bilirubin) Negative Glucose (test code = Glucose) 100 Appearance (test code = Appearance) Clear Color (test code = Color) Yellow [facility] (dipstick) panel - [id number] 09:32:18 Test Item Value Reference Range Interpretation Comments Leukocytes (test code = Leukocytes) Negative Nitrite (test code = Nitrite) negative Urobilinogen (test code = .2 Urobilinogen) Protein (test code = Protein) Negative pH (test code = pH) 6.0 Blood (test code = Blood) Negative Specific [place] (test code = 1.030 Specific [place]) Ketone (test code = Ketone) Negative Bilirubin (test code = Bilirubin) Negative Glucose (test code = Glucose) 100 Appearance (test code = Appearance) Clear Color (test code = Color) Yellow [facility] (dipstick) panel - [id number] 09:32:18 Test Item Value Reference Range Interpretation Comments Leukocytes (test code = Leukocytes) Negative Nitrite (test code = Nitrite) negative Urobilinogen (test code = .2 Urobilinogen) Protein (test code = Protein) Negative pH (test code = pH) 6.0 Blood (test code = Blood) Negative Specific [place] (test code = 1.030 Specific [place]) Ketone (test code = Ketone) Negative Bilirubin (test code = Bilirubin) Negative Glucose (test code = Glucose) 100 Appearance (test code = Appearance) Clear Color (test code = Color) Yellow [facility], DNA, [id number] 00:00:00 Test Item Value Reference Range Interpretation Comments chlamydia trachomatis by real-time negative PCR (reflex to azithromycin resistance by pyrosequencing) (test code = chlamydia trachomatis by real-time PCR (reflex to azithromycin resistance by pyrosequencing)) trichomonas vaginalis by real-time negative PCR (reflex to metronidazole resistance) (test code = trichomonas vaginalis by real-time PCR (reflex to metronidazole resistance)) neisseria gonorrhoeae by real-time negative PCR (reflex to antibiotic resistance by molecular analysis) (test code = neisseria gonorrhoeae by real-time PCR (reflex to antibiotic resistance by molecular analysis)) [facility], [id number] 00:00:00 Test Item Value Reference Range Interpretation Comments gardnerella vaginalis by positive A real-time PCR (test code = gardnerella vaginalis by real-time PCR) atopobium vaginae by real-time positive A PCR (test code = atopobium vaginae by real-time PCR) bacterial vaginosis associated positive A bacterium 2 (bvab2) by real-time PCR (test code = bacterial vaginosis associated bacterium 2 (bvab2) by real-time PCR) megasphaera species (type 1 and positive A type 2) by real-time PCR (test code = megasphaera species (type 1 and type 2) by real-time PCR) lactobacillus (bv & av panel) by see comment real time PCR (test code = lactobacillus (bv & av panel) by real time PCR) [facility] sp DNA [Presence] in Vaginal fluid by Probe and target amplification [id number] 00:00:00 Test Item Value Reference Range Interpretation Comments marge albicans by real-time PCR positive A (test code = marge albicans by real-time PCR) marge tropicalis by real-time PCR negative (test code = marge tropicalis by real-time PCR) marge parapsilosis by real-time negative PCR (test code = marge parapsilosis by real-time PCR) marge glabrata by real-time PCR negative (test code = marge glabrata by real-time PCR) [facility], DNA, [id number] 00:00:00 Test Item Value Reference Range Interpretation Comments chlamydia trachomatis by real-time negative PCR (reflex to azithromycin resistance by pyrosequencing) (test code = chlamydia trachomatis by real-time PCR (reflex to azithromycin resistance by pyrosequencing)) trichomonas vaginalis by real-time negative PCR (reflex to metronidazole resistance) (test code = trichomonas vaginalis by real-time PCR (reflex to metronidazole resistance)) neisseria gonorrhoeae by real-time negative PCR (reflex to antibiotic resistance by molecular analysis) (test code = neisseria gonorrhoeae by real-time PCR (reflex to antibiotic resistance by molecular analysis)) [facility] DNA and score panel - Vaginal fluid by FLAVIA with probe [id number] 00:00:00 Test Item Value Reference Range Interpretation Comments gardnerella vaginalis by positive A real-time PCR (test code = gardnerella vaginalis by real-time PCR) atopobium vaginae by real-time positive A PCR (test code = atopobium vaginae by real-time PCR) bacterial vaginosis associated positive A bacterium 2 (bvab2) by real-time PCR (test code = bacterial vaginosis associated bacterium 2 (bvab2) by real-time PCR) megasphaera species (type 1 and positive A type 2) by real-time PCR (test code = megasphaera species (type 1 and type 2) by real-time PCR) lactobacillus (bv & av panel) by see comment real time PCR (test code = lactobacillus (bv & av panel) by real time PCR) [facility] sp DNA [Presence] in Vaginal fluid by FLAVIA with probe [id number] 00:00:00 Test Item Value Reference Range Interpretation Comments marge albicans by real-time PCR positive A (test code = marge albicans by real-time PCR) marge tropicalis by real-time PCR negative (test code = marge tropicalis by real-time PCR) marge parapsilosis by real-time negative PCR (test code = marge parapsilosis by real-time PCR) marge glabrata by real-time PCR negative (test code = marge glabrata by real-time PCR) [facility] 2000 [facility] - Serum or Plasma 2019-06-22 10:25:00 Test Item Value Reference Range Interpretation Comments glucose (test code = glucose) 112 mg/dL 74-106 H Urea nitrogen [Mass/volume] in 5 mg/dL 6-20 L Serum or Plasma (test code = 3094-0) osmolality calculated,serum (test 268 mOsm/kg 280-300 L code = osmolality calculated,serum) creatinine (test code = 0.6 mg/dL 0.50-0.90 creatinine) glomerular filtration rate (test >60.00 code = glomerular filtration rate) Urea nitrogen/Creatinine [Mass 8.3 12-20 L Ratio] in Serum or Plasma (test code = 3097-3) sodium level (test code = sodium 135 mmol/L 135-145 level) Potassium [Moles/volume] in Body 4.2 mmol/L 3.5-5.2 fluid (test code = 2821-7) chloride level (test code = 103 mmol/L 98-108 chloride level) CO2 (test code = CO2) 20 mmol/L 21-32 L anion gap (test code = anion gap) 16.2 mEq/L 12-20 calcium level (test code = 8.9 mg/dL 8.6-10.0 calcium level) total protein (test code = total 7.1 g/dL 6.6-8.7 protein) albumin (test code = albumin) 3.3 g/dL 3.5-5.2 L globulin (test code = globulin) 3.8 gm/dL A/G ratio (test code = A/G ratio) 0.9 >1.0 bilirubin,total (test code = <0.3 0.0-1.2 bilirubin,total) AST/SGOT (test code = AST/SGOT) 14 U/L 15-32 L Alanine aminotransferase 9 U/L 0-33 [Enzymatic activity/volume] in Serum or Plasma (test code = 1742-6) Alkaline phosphatase [Enzymatic 68 U/L 35-105 activity/volume] in Serum or Plasma (test code = 6768-6) [facility] - Serum or Plasma 2019-06-22 10:25:00 Test Item Value Reference Range Interpretation Comments glucose (test code = glucose) 112 mg/dL 74-106 H Urea nitrogen [Mass/volume] in 5 mg/dL 6-20 L Serum or Plasma (test code = 3094-0) osmolality calculated,serum (test 268 mOsm/kg 280-300 L code = osmolality calculated,serum) creatinine (test code = 0.6 mg/dL 0.50-0.90 creatinine) glomerular filtration rate (test >60.00 code = glomerular filtration rate) Urea nitrogen/Creatinine [Mass 8.3 12-20 L Ratio] in Serum or Plasma (test code = 3097-3) sodium level (test code = sodium 135 mmol/L 135-145 level) Potassium [Moles/volume] in Body 4.2 mmol/L 3.5-5.2 fluid (test code = 2821-7) chloride level (test code = 103 mmol/L 98-108 chloride level) CO2 (test code = CO2) 20 mmol/L 21-32 L anion gap (test code = anion gap) 16.2 mEq/L 12-20 calcium level (test code = 8.9 mg/dL 8.6-10.0 calcium level) total protein (test code = total 7.1 g/dL 6.6-8.7 protein) albumin (test code = albumin) 3.3 g/dL 3.5-5.2 L globulin (test code = globulin) 3.8 gm/dL A/G ratio (test code = A/G ratio) 0.9 >1.0 bilirubin,total (test code = <0.3 0.0-1.2 bilirubin,total) AST/SGOT (test code = AST/SGOT) 14 U/L 15-32 L Alanine aminotransferase 9 U/L 0-33 [Enzymatic activity/volume] in Serum or Plasma (test code = 1742-6) Alkaline phosphatase [Enzymatic 68 U/L 35-105 activity/volume] in Serum or Plasma (test code = 6768-6) [facility] [id number] 00:00:00 Test Item Value Reference Range Interpretation Comments klebsiella pneumoniae by real-time negative PCR (test code = klebsiella pneumoniae by real-time PCR) [facility]le[facility] oxytoca by real-time [id number] 00:00:00 Test Item Value Reference Range Interpretation Comments klebsiella oxytoca by real-time PCR negative (test code = klebsiella oxytoca by real-time PCR) [facility] CountyColony count [#/volume] in [id number] 00:00:00 Test Item Value Reference Range Interpretation Comments group B streptococcus (gbs) by negative real-time PCR (test code = group B streptococcus (gbs) by real-time PCR) escherichia coli by real-time PCR negative (test code = escherichia coli by real-time PCR) proteus mirabilis by real-time PCR negative (test code = proteus mirabilis by real-time PCR) staphylococcus saprophyticus by negative real-time PCR (test code = staphylococcus saprophyticus by real-time PCR) enterococcus faecalis by real-time negative PCR (test code = enterococcus faecalis by real-time PCR) enterococcus faecium by real-time negative PCR (test code = enterococcus faecium by real-time PCR) pseudomonas aeruginosa by real-time negative PCR (test code = pseudomonas aeruginosa by real-time PCR) [facility]inal[facility] macro (dipstick) panel - [id number] 10:10:00 Test Item Value Reference Range Interpretation Comments Leukocytes (test code = Leukocytes) Trace Nitrite (test code = Nitrite) positive Urobilinogen (test code = .2 Urobilinogen) Protein (test code = Protein) 30 pH (test code = pH) 6.0 Blood (test code = Blood) Negative Specific [place] (test code = 1.030 Specific [place]) Ketone (test code = Ketone) Negative Bilirubin (test code = Bilirubin) Negative Glucose (test code = Glucose) Negative Appearance (test code = Appearance) Clear Color (test code = Color) Yellow [facility] CountyChromosome 13+18+21+X+Y aneuploidy in Blood by Molecular genetics method [id number] 00:00:00 Test Item Value Reference Range Interpretation Comments report summary (test code see notes = report summary) report note (test code = see notes report note) trisomy 13 age-based risk score (test code = trisomy 13 age-based risk score) trisomy 13 risk score (test code = trisomy 13 risk score) trisomy 13 age-based risk 1/5,543 (0.02%) text (test code = trisomy 13 age-based risk text) trisomy 13 risk score text <1/10,000 (<0.01%) (test code = trisomy 13 risk score text) trisomy 13 age-based risk fraction (test code = trisomy 13 age-based risk fraction) trisomy 13 risk score fraction (test code = trisomy 13 risk score fraction) trisomy 13 result text low risk (test code = trisomy 13 result text) trisomy 13 result comments see notes (test code = trisomy 13 result comments) trisomy 18 age-based risk score (test code = trisomy 18 age-based risk score) trisomy 18 risk score (test code = trisomy 18 risk score) trisomy 18 age-based risk 1/1,780 (0.06%) text (test code = trisomy 18 age-based risk text) trisomy 18 risk score text <1/10,000 (<0.01%) (test code = trisomy 18 risk score text) trisomy 18 age-based risk fraction (test code = trisomy 18 age-based risk fraction) trisomy 18 risk score fraction (test code = trisomy 18 risk score fraction) trisomy 18 result text low risk (test code = trisomy 18 result text) trisomy 18 result comments see notes (test code = trisomy 18 result comments) trisomy 21 age-based risk score (test code = trisomy 21 age-based risk score) trisomy 21 risk score (test code = trisomy 21 risk score) trisomy 21 age-based risk 1/673 (0.15%) text (test code = trisomy 21 age-based risk text) trisomy 21 risk score text <1/4,000 (<0.02%) (test code = trisomy 21 risk score text) trisomy 21 age-based risk fraction (test code = trisomy 21 age-based risk fraction) trisomy 21 risk score fraction (test code = trisomy 21 risk score fraction) trisomy 21 result text low risk (test code = trisomy 21 result text) trisomy 21 result comments see notes (test code = trisomy 21 result comments) zygosity (test code = dizygotic zygosity) gender of fetus (test code female = gender of fetus) gender of second fetus female (test code = gender of second fetus) fraction (in %) 3.1 % (test code = fraction (in %)) fraction (test code 3.1% = fraction) fraction second 2.9 % fetus (in %) (test code = fraction second fetus (in %)) fraction second 2.9% fetus (test code = fraction second fetus) footnotes (test code = see notes footnotes) boiler plate text (test see notes code = boiler plate text) references (test code = see notes references) approvals (test code = see notes approvals) contacts (test code = see notes contacts) [facility]Chromosome 13+18+21+X+Y aneuploidy in Blood by Molecular genetics method [id number] 00:00:00 Test Item Value Reference Range Interpretation Comments report summary (test code = see notes report summary) report note (test code = see notes report note) trisomy 13 age-based risk score (test code = trisomy 13 age-based risk score) trisomy 13 risk score (test code = trisomy 13 risk score) trisomy 13 age-based risk 05/22,543 (0.02%) text (test code = trisomy 13 age-based risk text) trisomy 13 risk score text n/a (test code = trisomy 13 risk score text) trisomy 13 age-based risk fraction (test code = trisomy 13 age-based risk fraction) trisomy 13 risk score fraction (test code = trisomy 13 risk score fraction) trisomy 13 result text (test no result code = trisomy 13 result text) trisomy 13 result comments see notes (test code = trisomy 13 result comments) trisomy 18 age-based risk score (test code = trisomy 18 age-based risk score) trisomy 18 risk score (test code = trisomy 18 risk score) trisomy 18 age-based risk 1/1,780 (0.06%) text (test code = trisomy 18 age-based risk text) trisomy 18 risk score text n/a (test code = trisomy 18 risk score text) trisomy 18 age-based risk fraction (test code = trisomy 18 age-based risk fraction) trisomy 18 risk score fraction (test code = trisomy 18 risk score fraction) trisomy 18 result text (test no result code = trisomy 18 result text) trisomy 18 result comments see notes (test code = trisomy 18 result comments) trisomy 21 age-based risk score (test code = trisomy 21 age-based risk score) trisomy 21 risk score (test code = trisomy 21 risk score) trisomy 21 age-based risk 1/673 (0.15%) text (test code = trisomy 21 age-based risk text) trisomy 21 risk score text n/a (test code = trisomy 21 risk score text) trisomy 21 age-based risk fraction (test code = trisomy 21 age-based risk fraction) trisomy 21 risk score fraction (test code = trisomy 21 risk score fraction) trisomy 21 result text (test no result code = trisomy 21 result text) trisomy 21 result comments see notes (test code = trisomy 21 result comments) monosomy X age-based risk score (test code = monosomy X age-based risk score) monosomy X risk score (test code = monosomy X risk score) monosomy X age-based risk 1/568 (0.18%) text (test code = monosomy X age-based risk text) monosomy X risk score text n/a (test code = monosomy X risk score text) monosomy X age-based risk fraction (test code = monosomy X age-based risk fraction) monosomy X risk score fraction (test code = monosomy X risk score fraction) monosomy X result text (test no result code = monosomy X result text) monosomy X result comments see notes (test code = monosomy X result comments) zygosity (test code = dizygotic zygosity) gender of fetus (test code = n/a gender of fetus) gender of second fetus (test n/a code = gender of second fetus) fraction (in %) (test 2.9 % code = fraction (in %)) fraction (test code = 2.9% fraction) fraction second fetus 2.6 % (in %) (test code = fraction second fetus (in %)) fraction second fetus 2.6% (test code = fraction second fetus) footnotes (test code = see notes footnotes) boiler plate text (test code see notes = boiler plate text) references (test code = see notes references) approvals (test code = see notes approvals) contacts (test code = see notes contacts) [facility]rom[facility] 13+18+21+X+Y aneuploidy in Blood by Molecular genetics method [id number] 00:00:00 Test Item Value Reference Range Interpretation Comments report summary (test code = see notes report summary) report note (test code = see notes report note) trisomy 13 age-based risk score (test code = trisomy 13 age-based risk score) trisomy 13 risk score (test code = trisomy 13 risk score) trisomy 13 age-based risk 1/5,543 (0.02%) text (test code = trisomy 13 age-based risk text) trisomy 13 risk score text n/a (test code = trisomy 13 risk score text) trisomy 13 age-based risk fraction (test code = trisomy 13 age-based risk fraction) trisomy 13 risk score fraction (test code = trisomy 13 risk score fraction) trisomy 13 result text (test no result code = trisomy 13 result text) trisomy 13 result comments see notes (test code = trisomy 13 result comments) trisomy 18 age-based risk score (test code = trisomy 18 age-based risk score) trisomy 18 risk score (test code = trisomy 18 risk score) trisomy 18 age-based risk 1,780 (0.06%) text (test code = trisomy 18 age-based risk text) trisomy 18 risk score text n/a (test code = trisomy 18 risk score text) trisomy 18 age-based risk fraction (test code = trisomy 18 age-based risk fraction) trisomy 18 risk score fraction (test code = trisomy 18 risk score fraction) trisomy 18 result text (test no result code = trisomy 18 result text) trisomy 18 result comments see notes (test code = trisomy 18 result comments) trisomy 21 age-based risk score (test code = trisomy 21 age-based risk score) trisomy 21 risk score (test code = trisomy 21 risk score) trisomy 21 age-based risk 673 (0.15%) text (test code = trisomy 21 age-based risk text) trisomy 21 risk score text n/a (test code = trisomy 21 risk score text) trisomy 21 age-based risk fraction (test code = trisomy 21 age-based risk fraction) trisomy 21 risk score fraction (test code = trisomy 21 risk score fraction) trisomy 21 result text (test no result code = trisomy 21 result text) trisomy 21 result comments see notes (test code = trisomy 21 result comments) monosomy X age-based risk score (test code = monosomy X age-based risk score) monosomy X risk score (test code = monosomy X risk score) monosomy X age-based risk 1/568 (0.18%) text (test code = monosomy X age-based risk text) monosomy X risk score text n/a (test code = monosomy X risk score text) monosomy X age-based risk fraction (test code = monosomy X age-based risk fraction) monosomy X risk score fraction (test code = monosomy X risk score fraction) monosomy X result text (test no result code = monosomy X result text) monosomy X result comments see notes (test code = monosomy X result comments) zygosity (test code = dizygotic zygosity) gender of fetus (test code = n/a gender of fetus) gender of second fetus (test n/a code = gender of second fetus) fraction (in %) (test 2.9 % code = fraction (in %)) fraction (test code = 2.9% fraction) fraction second fetus 2.6 % (in %) (test code = fraction second fetus (in %)) fraction second fetus 2.6% (test code = fraction second fetus) footnotes (test code = see notes footnotes) boiler plate text (test code see notes = boiler plate text) references (test code = see notes references) approvals (test code = see notes approvals) contacts (test code = see notes contacts) [facility]+Neisseria gonorrhoeae DNA [Presence] in Cervix by Probe and target amplification [id number] 02:48:00 [facility]Chlamydia trachomatis+Neisseria gonorrhoeae DNA [Presence] in Cervix by Probe and target amplification [id number] 02:48:00 ResultsU[facility] CountyMicroscopic observation [Identifier] in Cervix by Cyto stain.thin [id number] 02:48:00ResultsU[facility] CountyChlamydia trachomatis+Neisseria gonorrhoeae DNA [Presence] in Cervix by Probe and target amplification [id number] 02:48:00ResultsU[facility] CountyMicroscopic observation [Identifier] in Cervix by Cyto stain.thin [id number] 02:48:00 ResultsU[facility] CountyUrinalysis complete panel - [id number] 08:20:00 Test Item Value Reference Range Interpretation Comments Color of Urine by Auto (test light yellow code = 36782-9) Appearance of Urine (test code = SL cloudy clear A 5767-9) Glucose [Presence] in Urine by negative negative Automated test strip (test code = 86836-9) Bilirubin.total [Mass/volume] in negative negative Urine (test code = 1978-6) Ketones [Mass/volume] in Urine negative negative by Automated test strip (test code = 04353-8) Specific gravity of Urine by 1.017 1.003-1.030 Automated test strip (test code = 20123-6) blood urine (test code = blood negative negative urine) pH of Urine (test code = 2756-5) 6.500 5-9 protein urine (UA) (test code = trace negative protein urine (UA)) Urobilinogen [Presence] in Urine normal 0.2-1.0 (test code = 65656-2) Nitrite [Presence] in Urine by negative negative Test strip (test code = 5802-4) Leukocyte esterase [Presence] in negative negative Urine by Automated test strip (test code = 36435-4) Erythrocytes [#/volume] in Urine =1-5 0-5 by Automated count (test code = 798-9) Leukocytes [#/area] in Urine =1-5 0-5 sediment by Automated count (test code = 79706-7) Epithelial cells [Presence] in =11-14 0-5 Urine sediment by Light microscopy (test code = 08299-6) Bacteria identified in Urine by small(1 none detect Culture (test code = 630-4) Casts [#/area] in Urine sediment =2-5 none detect by Automated count (test code = 34721-4) urine culture added? (test code no = urine culture added?) [facility] [Type] in [id number] 07:35:00 Test Item Value Reference Range Interpretation Comments Rh [Type] in Blood (test code = positive 68849-3) [facility] W Auto Differential panel - [id number] 07:35:00 Test Item Value Reference Range Interpretation Comments white blood count (test code = 7.5 K/uL 4.0-11.5 white blood count) red blood count (test code = red 4.42 M/uL 3.80-5.20 blood count) hemoglobin (test code = 10.7 g/dL 10.5-15.7 hemoglobin) hematocrit (test code = 34.5 % 34.0-50.0 hematocrit) Erythrocyte mean corpuscular 78.1 fL 86-100 L volume [Entitic volume] (test code = 32423-5) mean corpuscular hemoglobin (test 24.2 pg 26.2-33.4 L code = mean corpuscular hemoglobin) mean corpuscular HGB conc (test 31.0 g/dL 30-34 code = mean corpuscular HGB conc) red cell distribution width (test 16.4 % 12.0-15.5 H code = red cell distribution width) platelet count (test code = 338 K/uL 165-450 platelet count) mean platelet volume (test code = 9.2 fL 9.4-12.6 L mean platelet volume) Neutrophils.segmented/100 53.9 % 44.4-80.1 leukocytes in Blood (test code = 19572-0) Granulocytes Immature [#/volume] 0.0 K/uL 0.0-0.03 in Blood (test code = 93886-9) lymphocyte% (test code = 30.3 % 10.0-50.0 lymphocyte%) mono % (test code = mono %) 11.1 % 3.6-12.0 eos % (test code = eos %) 4.1 % 0.0-5.4 Basophils/100 leukocytes in 0.5 % 0.1-1.2 Unspecified specimen (test code = 09739-8) Neutrophils.band form [#/volume] 4.03 K/uL 1.56-6.13 in Blood (test code = 18099-9) Lymphocytes [#/volume] in 2.3 K/uL 1.18-3.74 Unspecified specimen by Automated count (test code = 81215-2) mono # (test code = mono #) 0.83 K/uL 0.24-0.86 eos # (test code = eos #) 0.31 K/uL 0.04-0.36 basophil # (test code = basophil 0.04 K/uL 0.01-0.08 #) NRBC% (test code = NRBC%) 0 /100 WBC 0-0.2 NRBC# (test code = NRBC#) 0 K/uL [facility] - Serum or Plasma 2019-03-12 07:35:00 Test Item Value Reference Range Interpretation Comments glucose (test code = glucose) 111 mg/dL 74-106 H Urea nitrogen [Mass/volume] in 8 mg/dL 6-20 Serum or Plasma (test code = 3094-0) osmolality calculated,serum (test 267 mOsm/kg 280-300 L code = osmolality calculated,serum) creatinine (test code = 0.7 mg/dL 0.50-0.90 creatinine) glomerular filtration rate (test >60.00 code = glomerular filtration rate) Urea nitrogen/Creatinine [Mass 11.4 12-20 L Ratio] in Serum or Plasma (test code = 3097-3) sodium level (test code = sodium 134 mmol/L 135-145 L level) Potassium [Moles/volume] in Body 3.9 mmol/L 3.5-5.2 fluid (test code = 2821-7) chloride level (test code = 100 mmol/L 98-108 chloride level) CO2 (test code = CO2) 22 mmol/L 21-32 anion gap (test code = anion gap) 15.9 mEq/L 12-20 calcium level (test code = 8.7 mg/dL 8.6-10.0 calcium level) total protein (test code = total 7.1 g/dL 6.6-8.7 protein) albumin (test code = albumin) 3.5 g/dL 3.5-5.2 globulin (test code = globulin) 3.6 gm/dL A/G ratio (test code = A/G ratio) 1.0 >1.0 bilirubin,total (test code = <0.3 0.0-1.2 bilirubin,total) AST/SGOT (test code = AST/SGOT) 12 U/L 15-32 L Alanine aminotransferase 10 U/L 0-33 [Enzymatic activity/volume] in Serum or Plasma (test code = 1742-6) Alkaline phosphatase [Enzymatic 46 U/L 35-105 activity/volume] in Serum or Plasma (test code = 6768-6) [facility]horiogonadotropin.beta subunit [Units/volume] in Serum or [id number] 07:35:00 Test Item Value Reference Range Interpretation Comments HCG quantitative (test code = 283950.0 mIU/mL 0-5 HCG quantitative) [facility]Urinalysis macro (dipstick) panel - [id number] 10:19:00 Test Item Value Reference Range Interpretation Comments Leukocytes (test code = Leukocytes) Negative Nitrite (test code = Nitrite) negative Urobilinogen (test code = .2 Urobilinogen) Protein (test code = Protein) Negative pH (test code = pH) 7.5 Blood (test code = Blood) Negative Specific [place] (test code = 1.020 Specific [place]) Ketone (test code = Ketone) Negative Bilirubin (test code = Bilirubin) Negative Glucose (test code = Glucose) Negative Appearance (test code = Appearance) Clear Color (test code = Color) Yellow [facility] macro (dipstick) panel - [id number] 10:19:00 Test Item Value Reference Range Interpretation Comments Leukocytes (test code = Leukocytes) Negative Nitrite (test code = Nitrite) negative Urobilinogen (test code = .2 Urobilinogen) Protein (test code = Protein) Negative pH (test code = pH) 7.5 Blood (test code = Blood) Negative Specific [place] (test code = 1.020 Specific [place]) Ketone (test code = Ketone) Negative Bilirubin (test code = Bilirubin) Negative Glucose (test code = Glucose) Negative Appearance (test code = Appearance) Clear Color (test code = Color) Yellow [facility] Differential panel - [id number] 08:48:00 Test Item Value Reference Range Interpretation Comments white blood count (test code = 9.2 K/uL 4.0-11.5 white blood count) red blood count (test code = red 4.63 M/uL 3.80-5.20 blood count) hemoglobin (test code = 11.2 g/dL 10.5-15.7 hemoglobin) hematocrit (test code = 36.5 % 34.0-50.0 hematocrit) Erythrocyte mean corpuscular 78.8 fL 86-100 L volume [Entitic volume] (test code = 79988-3) mean corpuscular hemoglobin (test 24.2 pg 26.2-33.4 L code = mean corpuscular hemoglobin) mean corpuscular HGB conc (test 30.7 g/dL 30-34 code = mean corpuscular HGB conc) red cell distribution width (test 16.8 % 12.0-15.5 H code = red cell distribution width) platelet count (test code = 422 K/uL 165-450 platelet count) mean platelet volume (test code = 9.6 fL 9.4-12.6 mean platelet volume) Neutrophils.segmented/100 63.7 % 44.4-80.1 leukocytes in Blood (test code = 95211-6) Granulocytes Immature [#/volume] 0.0 K/uL 0.0-0.03 in Blood (test code = 18106-2) lymphocyte% (test code = 25.5 % 10.0-50.0 lymphocyte%) mono % (test code = mono %) 7.5 % 3.6-12.0 eos % (test code = eos %) 2.3 % 0.0-5.4 Basophils/100 leukocytes in 0.7 % 0.1-1.2 Unspecified specimen (test code = 15222-7) Neutrophils.band form [#/volume] 5.86 K/uL 1.56-6.13 in Blood (test code = 16589-2) Lymphocytes [#/volume] in 2.3 K/uL 1.18-3.74 Unspecified specimen by Automated count (test code = 19212-0) mono # (test code = mono #) 0.69 K/uL 0.24-0.86 eos # (test code = eos #) 0.21 K/uL 0.04-0.36 basophil # (test code = basophil 0.06 K/uL 0.01-0.08 #) NRBC% (test code = NRBC%) 0 /100 WBC 0-0.2 NRBC# (test code = NRBC#) 0 K/uL [facility] [Type] in [id number] 08:48:00 Test Item Value Reference Range Interpretation Comments Rh [Type] in Blood (test code = 4+ 57750-8) ABO and Rh group panel - Blood O positive (test code = 62759-7) [facility] antibody screen [Presence] in Serum or Plasma 2019-03-09 08:48:00 Test Item Value Reference Range Interpretation Comments Blood group antibody screen negative [Presence] in Serum or Plasma (test code = 890-4) [facility]Bacteria identified in Urine by [id number] 08:48:00 Test Item Value Reference Range Interpretation Comments Bacteria identified in no growth at 48 hrs. Urine by Culture (test code = 630-4) [facility] Ab [Presence] in Serum by [id number] 08:48:00 Test Item Value Reference Range Interpretation Comments Reagin Ab [Presence] in Serum by nonreactive nonreactive RPR (test code = 13582-3) [facility]atitis B virus surface Ag [Presence] in Serum 2019-03-09 08:48:00 Test Item Value Reference Range Interpretation Comments .hepatitis B surface antigen (test negative negative code = .hepatitis B surface antigen) [facility] 1+O+2 Ab [Presence] in Serum or [id number] 08:48:00 Test Item Value Reference Range Interpretation Comments HIV 1+2 Ab+HIV1 p24 Ag non reactive [Presence] in Serum by Immunoassay (test code = 35695-6) [facility] CountyChoriogonadotropin.beta subunit [Units/volume] in Serum or [id number] 01:04:00 Test Item Value Reference Range Interpretation Comments HCG quantitative (test code = 31778.0 mIU/mL 0-5 HCG quantitative) [facility] Differential panel - [id number] 11:30:00 Test Item Value Reference Range Interpretation Comments white blood count (test code = 7.9 K/uL 4.0-11.5 white blood count) red blood count (test code = red 4.69 M/uL 3.80-5.20 blood count) Hemoglobin [Mass/volume] in Blood 12.3 g/dL 10.5-15.7 (test code = 718-7) hematocrit (test code = hematocrit) 39.7 % 34.0-50.0 Erythrocyte mean corpuscular volume 84.7 fL 78-98 [Entitic volume] (test code = 20929-9) Erythrocyte mean corpuscular 26.3 pg 26.2-33.4 hemoglobin [Entitic mass] (test code = 78892-8) mean corpuscular HGB conc (test 31.0 g/dL 31.5-36.2 L code = mean corpuscular HGB conc) red cell distribution width (test 14.3 % 11.5-15.5 code = red cell distribution width) Platelets [#/volume] in Blood (test 323 K/uL 137-338 code = 90684-8) Platelet mean volume [Entitic 6.6 fL 8.4-11.8 L volume] in Blood (test code = 52998-0) Neutrophils.band form/100 58.6 % 44.4-80.1 leukocytes in Blood (test code = 39248-7) Lymphocytes/100 leukocytes in Body 32.0 % 10.0-50.0 fluid (test code = 68808-4) Monocytes/100 leukocytes in Blood 5.3 % 3.6-12.04 by Automated count (test code = 5905-5) Eosinophils/100 leukocytes in Blood 3.2 % 0.0-5.41 by Automated count (test code = 713-8) Basophils/100 leukocytes in 0.8 % 0.0-0.79 H Unspecified specimen (test code = 24208-7) [facility] type and Indirect antibody screen panel - Blood 2018-09-29 11:30:00 Test Item Value Reference Range Interpretation Comments Rh [Type] in Blood (test code = 4+ 14727-6) ABO and Rh group panel - Blood O positive (test code = 60034-6) [facility]Urinalysis macro (dipstick) panel - [id number] 15:26:00 Test Item Value Reference Range Interpretation Comments Leukocytes (test code = Negative Leukocytes) Nitrite (test code = Nitrite) negative Urobilinogen (test code = .2 Urobilinogen) Protein (test code = Protein) Negative pH (test code = pH) 6.5 Blood (test code = Blood) Large Specific [place] (test code = 1.025 Specific [place]) Ketone (test code = Ketone) Negative Bilirubin (test code = Bilirubin) Negative Glucose (test code = Glucose) Negative Appearance (test code = Clear Appearance) Color (test code = Color) Dark Yellow [facility]Urinalysis macro (dipstick) panel - [id number] 15:26:00 Test Item Value Reference Range Interpretation Comments Leukocytes (test code = Negative Leukocytes) Nitrite (test code = Nitrite) negative Urobilinogen (test code = .2 Urobilinogen) Protein (test code = Protein) Negative pH (test code = pH) 6.5 Blood (test code = Blood) Large Specific [place] (test code = 1.025 Specific [place]) Ketone (test code = Ketone) Negative Bilirubin (test code = Bilirubin) Negative Glucose (test code = Glucose) Negative Appearance (test code = Clear Appearance) Color (test code = Color) Dark Yellow [facility], LB + reflex to HR HPV if [id number] 00:00:00 Test Item Value Reference Range Interpretation Comments General categories [interpretation] of normal Cervical or vaginal smear or scraping by Cyto stain (test code = 51845-7) [facility], [facility] + reflex to HR HPV if [id number] 00:00:00 Test Item Value Reference Range Interpretation Comments General categories [interpretation] of normal Cervical or vaginal smear or scraping by Cyto stain (test code = 81262-6) [facility], LB + reflex to HR HPV if [id number] 00:00:00 Test Item Value Reference Range Interpretation Comments General categories [interpretation] of normal Cervical or vaginal smear or scraping by Cyto stain (test code = 49568-5) [facility]Chlamydia trachomatis+Neisseria gonorrhoeae DNA [Presence] in Unspecified specimen by Probe and target amplification method 2018-09-08 00:00:00 Test Item Value Reference Range Interpretation Comments chlamydia trachomatis by real-time negative PCR (reflex to azithromycin resistance by pyrosequencing) (test code = chlamydia trachomatis by real-time PCR (reflex to azithromycin resistance by pyrosequencing)) neisseria gonorrhoeae by real-time negative PCR (reflex to antibiotic resistance by molecular analysis) (test code = neisseria gonorrhoeae by real-time PCR (reflex to antibiotic resistance by molecular analysis)) [facility]+Neisseria gonorrhoeae DNA [Presence] in Unspecified specimen by Probe and target amplification method 2018-09-08 00:00:00 Test Item Value Reference Range Interpretation Comments chlamydia trachomatis by real-time negative PCR (reflex to azithromycin resistance by pyrosequencing) (test code = chlamydia trachomatis by real-time PCR (reflex to azithromycin resistance by pyrosequencing)) neisseria gonorrhoeae by real-time negative PCR (reflex to antibiotic resistance by molecular analysis) (test code = neisseria gonorrhoeae by real-time PCR (reflex to antibiotic resistance by molecular analysis)) [facility] [Presence] in Unspecified specimen by Probe and target amplification method 2018-09-08 00:00:00 Test Item Value Reference Range Interpretation Comments chlamydia trachomatis by real-time negative PCR (reflex to azithromycin resistance by pyrosequencing) (test code = chlamydia trachomatis by real-time PCR (reflex to azithromycin resistance by pyrosequencing)) neisseria gonorrhoeae by real-time negative PCR (reflex to antibiotic resistance by molecular analysis) (test code = neisseria gonorrhoeae by real-time PCR (reflex to antibiotic resistance by molecular analysis)) [facility] macro (dipstick) panel - [id number] 12:47:00 Test Item Value Reference Range Interpretation Comments Leukocytes (test code = Leukocytes) Negative Nitrite (test code = Nitrite) negative Urobilinogen (test code = .2 Urobilinogen) Protein (test code = Protein) Negative pH (test code = pH) 6.0 Blood (test code = Blood) Negative Specific [place] (test code = 1.010 Specific [place]) Ketone (test code = Ketone) Negative Bilirubin (test code = Bilirubin) Negative Glucose (test code = Glucose) Negative Appearance (test code = Appearance) Clear Color (test code = Color) Yellow [facility]Urinalysis macro (dipstick) panel - [id number] 12:47:00 Test Item Value Reference Range Interpretation Comments Leukocytes (test code = Leukocytes) Negative Nitrite (test code = Nitrite) negative Urobilinogen (test code = .2 Urobilinogen) Protein (test code = Protein) Negative pH (test code = pH) 6.0 Blood (test code = Blood) Negative Specific [place] (test code = 1.010 Specific [place]) Ketone (test code = Ketone) Negative Bilirubin (test code = Bilirubin) Negative Glucose (test code = Glucose) Negative Appearance (test code = Appearance) Clear Color (test code = Color) Yellow [facility]inalysis macro (dipstick) panel - [id number] 12:47:00 Test Item Value Reference Range Interpretation Comments Leukocytes (test code = Leukocytes) Negative Nitrite (test code = Nitrite) negative Urobilinogen (test code = .2 Urobilinogen) Protein (test code = Protein) Negative pH (test code = pH) 6.0 Blood (test code = Blood) Negative Specific [place] (test code = 1.010 Specific [place]) Ketone (test code = Ketone) Negative Bilirubin (test code = Bilirubin) Negative Glucose (test code = Glucose) Negative Appearance (test code = Appearance) Clear Color (test code = Color) Yellow [facility] CountyChoriogonadotropin.beta subunit [Units/volume] in Serum or [id number] 02:39:00 Test Item Value Reference Range Interpretation Comments HCG quantitative (test code = 1434.0 mIU/mL 0-5 HCG quantitative) [facility] W Auto Differential panel - [id number] 10:25:00 Test Item Value Reference Range Interpretation Comments white blood count (test code = 7.9 K/uL 4.0-11.5 white blood count) red blood count (test code = red 4.49 M/uL 3.80-5.20 blood count) Hemoglobin [Mass/volume] in Blood 11.8 g/dL 10.5-15.7 (test code = 718-7) hematocrit (test code = hematocrit) 37.4 % 34.0-50.0 Erythrocyte mean corpuscular volume 83.2 fL 78-98 [Entitic volume] (test code = 40216-1) Erythrocyte mean corpuscular 26.2 pg 26.2-33.4 hemoglobin [Entitic mass] (test code = 88199-5) mean corpuscular HGB conc (test 31.4 g/dL 31.5-36.2 L code = mean corpuscular HGB conc) red cell distribution width (test 15.6 % 11.5-15.5 H code = red cell distribution width) Platelets [#/volume] in Blood (test 337 K/uL 137-338 code = 26663-3) Platelet mean volume [Entitic 6.4 fL 8.4-11.8 L volume] in Blood (test code = 55864-1) Neutrophils.band form/100 44.9 % 44.4-80.1 leukocytes in Blood (test code = 80744-3) Lymphocytes/100 leukocytes in Body 43.5 % 10.0-50.0 fluid (test code = 78158-9) Monocytes/100 leukocytes in Blood 7.5 % 3.6-12.04 by Automated count (test code = 5905-5) Eosinophils/100 leukocytes in Blood 2.7 % 0.0-5.41 by Automated count (test code = 713-8) Basophils/100 leukocytes in Blood 1.4 % 0.0-0.79 H by Automated count (test code = 706-2) [facility]Choriogonadotropin.beta subunit [Units/volume] in Serum or [id number] 10:25:00 Test Item Value Reference Range Interpretation Comments HCG quantitative (test code = HCG 96.0 mIU/mL 0-5 quantitative) [facility] [Type] in [id number] 10:25:00 Test Item Value Reference Range Interpretation Comments Rh [Type] in Blood (test code = 4+ 30609-1) ABO and Rh group panel - Blood O positive (test code = 43644-0) [facility] antibody screen [Presence] in Serum or Plasma 2018-08-20 10:25:00 Test Item Value Reference Range Interpretation Comments Blood group antibody screen negative [Presence] in Serum or Plasma (test code = 890-4) [facility]atitis B virus surface Ag [Presence] in Serum 2018-08-20 10:25:00 Test Item Value Reference Range Interpretation Comments .hepatitis B surface antigen (test negative negative code = .hepatitis B surface antigen) [facility] Ab [Presence] in Serum by [id number] 10:25:00 Test Item Value Reference Range Interpretation Comments Reagin Ab [Presence] in Serum by nonreactive nonreactive RPR (test code = 60227-2) [facility] CountyBacteria identified in Urine by [id number] 10:25:00Bacteria Ur CultUmmc [facility] CountyHIV 1+2 Ab [Presence] in Serum 2018-08-20 10:25:00HIV P24 AgHIV-1/2 [facility]
[2021-10-16 10:08] LABS: Absolute Lymphocytes (CBC) 2.9 K/uL (0.7-4.9); Hematocrit 36.6 % (36.0-45.0); Lymphocytes % 40.8 % (15.3-44.8); MPV 6.8 fL (7.6-11.3)
[2021-10-16 10:25] LABS: ALT/SGPT 21 U/L (12-78); AST/SGOT 14 U/L (15-37); Albumin 3.1 g/dL (3.4-5.0); Alkaline Phosphatase 53 U/L (45-117); BUN Blood Urea Nitrogen 11 mg/dL (7-18); Bicarbonate 23 mmol/L (21-32); Bilirubin Total 0.1 mg/dL (0.2-1.0); Glomerular Filtration Rate 81 ml/min (=/>90); Glucose Level 82 mg/dL (74-106); Potassium 4.2 mmol/L (3.5-5.1); Protein, Total 7.4 g/dL (6.4-8.2); Sodium Level 138 mmol/L (136-145); Troponin High Sensitivity 4.2 pg/mL (<58.9)
[2021-10-16 10:30] LABS: Bilirubin Direct < 0.1 mg/dL (0-0.2)
--- NOTE | 2021-10-16 10:34 | RAD REPORT ---
EXAM DESCRIPTION: US - Extrem Venous W Compress [place] - 10/16/2021 9:47 am CLINICAL HISTORY: PAIN Bilateral leg edema and swelling. COMPARISON: No comparisons TECHNIQUE: Real-time sonographic interrogation of the left and right lower extremity deep venous sys tems was performed. FINDINGS: Normal compressibility, flow augmentation, phasic flow and spontaneous flow is identified in both the left and right lower extremity deep venous systems. IMPRESSION: No sonographic evidence of left or right lower extremity deep venous thrombosis.
[2021-10-16 10:42] LABS: Urine Blood Negative (Negative); Urine Glucose Negative (Negative); Urine Protein Negative (Negative); Urine Specific Gravity 1.025 (1.005-1.030); Urine pH 6.5 (5.0-7.0)
--- NOTE | 2021-10-16 10:48 | RAD REPORT ---
EXAM DESCRIPTION: RAD - Chest Single View - 10/16/2021 10:10 am CLINICAL HISTORY: near-syncope Chest pain. COMPARISON: No comparisons FINDINGS: Portable technique limits examination quality. The lungs are grossly clear. The heart is normal in size. No displaced fractures. IMPRESSION: No acute intrathoracic process suspected.
[2021-10-16] MEDS ORDERED: ACETAMINOPHEN 500 MG TAB ONE (10:50)
[2021-10-16] MEDS ORDERED: NA CHLORIDE 0.9% 500 ML ONE (10:51)
[2021-10-16 10:58] LABS: Urine Specific Gravity/Preg 1.025 (1.005-1.030)
--- NOTE | 2021-10-16 11:16 | RAD REPORT ---
EXAM DESCRIPTION: CT - Head Brain Wo Cont - 10/16/2021 11:00 am CLINICAL HISTORY: Headache, chronic, new features or increased frequency Headache, drowsiness COMPARISON: No comparisons TECHNIQUE: All CT scans are performed using dose optimization technique as appropriate and may inclu de automated exposure control or mA/KV adjustment according to patient size. FINDINGS: No intracranial hemorrhage, hydrocephalus or extra-axial fluid collection.No areas of brai n edema or evidence of midline shift. The paranasal sinuses and mastoids are clear. The calvarium is intact. IMPRESSION: No acute intracranial abnormality.
--- NOTE | 2021-10-16 11:35 | ER ---
Nurse's Notes [facility] Name: Eve Mckee Age: 31 yrs Sex: Female : 1990 Arrival Date: 10/16/2021 Time: 09:05 Bed 17 Private MD: Diagnosis: Syncope Near;Palpitations;Headache Presentation: 10/16 09:23 Chief complaint: Patient states: hot flashes that began yesterday. Pt states, "I think ss my blood sugar is low.". Coronavirus screen: Client denies travel out of the [place] in the last 14 days. Ebola Screen: Patient denies exposure to infectious person. Patient denies travel to an Ebola-affected area in the 21 days before illness onset. Initial Sepsis Screen: Does the patient meet any 2 criteria? No. Patient's initial sepsis screen is negative. Does the patient have a suspected source of infection? No. Patient's initial sepsis screen is negative. Risk Assessment: Do you want to hurt yourself or someone else? Patient reports no desire to harm self or others. Onset of symptoms was October 15, 2021. 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 - Social history:: Smoking status: Reported history of juuling and/or vaping. Screenin:33 Abuse screen: Denies threats or abuse. Nutritional screening: No deficits noted. tw2 Tuberculosis screening: No symptoms or risk factors identified. Fall Risk None identified. Assessment: 09:28 Reassessment: PT to ultrasound from triage. ss 10:33 Reassessment: Patient appears in no apparent distress at this time. No changes from tw2 previously documented assessment. Patient and/or family updated on plan of care and expected duration. Pain level reassessed. Patient is alert, oriented x 3, equal unlabored respirations, skin warm/dry/pink. 10:33 Reassessment: pt ambulating to the restroom at this time. nad. tw2 10:42 Reassessment: pt c/o pain 7/10 "headache", provider notified. Patient states symptoms tw2 have not improved. 11:20 Reassessment: Patient appears in no apparent distress at this time. Patient and/or tw2 family updated on plan of care and expected duration. Pain level reassessed. Patient is alert, oriented x 3, equal unlabored respirations, skin warm/dry/pink. 12:05 Reassessment: Patient appears in no apparent distress at this time. No changes from tw2 previously documented assessment. Patient and/or family updated on plan of care and expected duration. Pain level reassessed. Patient is alert, oriented x 3, equal unlabored respirations, skin warm/dry/pink. Vital Signs: 09:23 BP 123 / 75; Pulse 72; Resp 16; Temp 97.2(TE); Pulse Ox 98% on R/A; Pain 0/10; ss 10:32 BP 107 / 44 Supine; Pulse 66; tw2 10:32 BP 102 / 48 Sitting; Pulse 73; tw2 10:32 BP 118 / 62 Standing; Pulse 77; tw2 11:17 BP 104 / 58 Supine; Pulse 54; Resp 17; Pulse Ox 98% ; tw2 ED Course: 09:05 Patient arrived in ED. am2 09:13 Bhupendra Clifton PA is PHCP. cp 09:13 Castillo Watson MD is Attending Physician. cp 09:24 Triage completed. ss 09:24 Arm band placed on right wrist. ss 09:43 Bed in low position. Call light in reach. Client placed on continuous cardiac and pulse tw2 oximetry monitoring. NIBP monitoring applied. traffic monitor specialist on. Pulse ox on. 09:48 Aaliyah Ortega, SHMUEL is Primary Nurse. tw2 09:49 US Extremity Venous W Compression Orion In Process Unspecified. EDMS 10:00 Inserted saline lock: 20 gauge in right antecubital area, using aseptic technique. tw2 Blood collected. 10:12 XRAY Chest (1 view) In Process Unspecified. EDMS 11:02 CT Head Brain wo Cont In Process Unspecified. EDMS 11:34 Sam Glass MD is Referral Physician. cp 11:49 Awaiting: completion of IV fluids PRIOR to discharge. tw2 12:05 No provider procedures requiring assistance completed. IV discontinued, intact, tw2 bleeding controlled, No redness/swelling at site. Pressure dressing applied. Administered Medications: 10:48 Drug: NS 0.9% 500 ml Route: IV; Rate: bolus; Site: right antecubital; tw2 12:05 Follow up: Response: No adverse reaction; IV Status: Completed infusion; IV Intake: tw2 500ml 10:49 Drug: Tylenol 1000 mg Route: PO; tw2 11:21 Follow up: Response: No adverse reaction; Pain is decreased tw2 Intake: 12:05 IV: 500ml; Total: 500ml. tw2 Outcome: 11:35 Discharge ordered by MD. cp 12:06 Discharged to home ambulatory. tw2 12:06 Condition: stable 12:06 Discharge instructions given to patient, Instructed on discharge instructions, follow up and referral plans. Demonstrated understanding of instructions, follow-up care. 12:06 Patient left the ED. tw2 Signatures: Dispatcher [employer] EDMS Becca Napier RN RN ss Bhupendra Clifton PA PA cp Aaliyah Ortega RN RN tw2 Kym Snider am2 Corrections: (The following items were deleted from the chart) 09:28 09:26 Home Meds: hydroxizine; leslie nelson
--- NOTE | 2021-10-16 11:35 | EDPHYS ---
Physician Documentation [facility] Name: Eve Mckee Age: 31 yrs Sex: Female : 1990 Arrival Date: 10/16/2021 Time: 09:05 Bed 17 Private MD: ED Physician Castillo Watson HPI: 10/16 09:13 This 31 yrs old Black Female presents to ER via Unassigned with complaints of sweating, cp Near Syncope. 09:13 The patient has experienced near-syncope, almost passed out. cp 09:13 Onset: The symptoms/episode began/occurred reports episode yesterday and then today cp while at work. Duration: The patient has had multiple episodes, that last an unknown period of time. Associated injury: The patient did not suffer any apparent associated injury. 09:13 Associated signs and symptoms: Pertinent positives: headache, lightheadedness, cp palpitations, Pertinent negatives: abdominal pain, chest pain, combativeness, diarrhea, shortness of breath, weakness. Current symptoms: headache. 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 - Social history:: Smoking status: Reported history of juuling and/or vaping. ROS: 09:20 Constitutional: Negative for body aches, chills, fever, poor PO intake. cp 09:20 Eyes: Negative for injury, pain, redness, and discharge. cp 09:20 ENT: Negative for drainage from ear(s), ear pain, sore throat, difficulty swallowing, difficulty handling secretions. 09:20 Cardiovascular: Positive for chest pain, palpitations, Negative for edema. 09:20 Respiratory: Negative for cough, shortness of breath, wheezing. 09:20 Abdomen/GI: Negative for abdominal pain, nausea, vomiting, diarrhea, constipation, dysphagia, black/tarry stool, rectal bleeding. 09:20 Back: Negative for pain at rest, pain with movement. 09:20 Neuro: Positive for headache, loss of consciousness, near syncope, Negative for altered mental status, dizziness, weakness. 09:20 All other systems are negative. Exam: 09:25 Constitutional: The patient appears in no acute distress, alert, awake, cp non-diaphoretic, non-toxic, well developed, well nourished, obese. 09:25 Head/Face: Normocephalic, atraumatic. cp 09:25 Eyes: Periorbital structures: appear normal, Pupils: equal, round, and reactive to light and accomodation, Extraocular movements: intact throughout, Conjunctiva: normal, no exudate, no injection, Sclera: no appreciated abnormality, Lids and lashes: appear normal, bilaterally. 09:25 ENT: External ear(s): are unremarkable, Ear canal(s): are normal, clear, TM's: dullness, bilaterally, Nose: is normal, Mouth: Lips: moist, Oral mucosa: pink and intact, moist, Posterior pharynx: Airway: no evidence of obstruction, patent. 09:25 Neck: ROM/movement: is normal, is supple, without pain, no range of motions limitations, no nuchal rigidity. 09:25 Chest/axilla: Inspection: normal. 09:25 Cardiovascular: Rate: normal, Rhythm: regular, Heart sounds: murmur, not appreciated, Edema: is not appreciated, JVD: is not appreciated. 09:25 Respiratory: the patient does not display signs of respiratory distress, Respirations: normal, no use of accessory muscles, no retractions, labored breathing, is not present, Breath sounds: are clear throughout, no decreased breath sounds, no stridor, no wheezing. 09:25 Abdomen/GI: Inspection: abdomen appears normal, Bowel sounds: active, Palpation: abdomen is soft and non-tender, in all quadrants. 09:25 Back: pain, is absent, ROM is normal. 09:25 Neuro: Orientation: to person, place \\T\\ time. Mentation: is normal, Cerebellar function: is grossly normal, Motor: moves all fours, strength is normal, Sensation: is normal. 09:56 ECG was reviewed by the Attending Physician. cp Vital Signs: 09:23 BP 123 / 75; Pulse 72; Resp 16; Temp 97.2(TE); Pulse Ox 98% on R/A; Pain 0/10; ss 10:32 BP 107 / 44 Supine; Pulse 66; tw2 10:32 BP 102 / 48 Sitting; Pulse 73; tw2 10:32 BP 118 / 62 Standing; Pulse 77; tw2 11:17 BP 104 / 58 Supine; Pulse 54; Resp 17; Pulse Ox 98% ; tw2 MDM: 09:44 Patient medically screened. cp 11:00 Differential Diagnosis: cardiac arrhythmia, cerebrovascular accident, drug effect, GI cp bleed, idiopathic syncope, . 11:35 Data reviewed: vital signs, nurses notes, lab test result(s), EKG, radiologic studies, cp CT scan, plain films. 11:35 Test interpretation: by ED physician or midlevel provider: ECG. 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 Response to treatment: the patient's symptoms have markedly improved after treatment, and as a result, I will discharge patient. 10/16 09:17 Order name: Basic Metabolic Panel; Complete Time: 10:31 cp 10/16 10:31 Interpretation: Normal except: CL 109; GFR 81. cp 10/16 09:17 Order name: CBC with Diff; Complete Time: 10:29 cp 10/16 10:29 Interpretation: Normal except: HGB 11.9; MCV 79.5; MCH 25.8; MPV 6.8. cp 10/16 09:17 Order name: D-Dimer; Complete Time: 10:29 cp 10/16 09:17 Order name: LFT's; Complete Time: 10:31 cp 06/ 10:32 Interpretation: Normal except: AST 14; BILIT 0.1; ALB 3.1; GLOB 4.3; A/G 0.7. cp 10/16 09:17 Order name: Magnesium; Complete Time: 10:31 cp 10/16 09:17 Order name: PT-INR; Complete Time: 10:29 cp 10/16 09:17 Order name: Troponin HS; Complete Time: 10:31 cp 10/16 09:17 Order name: XRAY Chest (1 view); Complete Time: 11:19 cp 10/16 11:19 Interpretation: Report review. cp 10/16 09:17 Order name: US Extremity Venous W Compression Orion; Complete Time: 11:19 cp 10/16 11:19 Interpretation: Report reviewed. cp 10/16 09:25 Order name: Glucose, Ancillary Testing; Complete Time: 10:29 EDMS 10/16 10:43 Order name: Urine Dipstick-Ancillary; Complete Time: 11:19 EDMS 10/16 10:46 Order name: CT Head Brain wo Cont; Complete Time: 11:19 cp 10/16 11:19 Interpretation: Report reviewed. cp 10/16 10:50 Order name: Urine --Ancillary (enter results); Complete Time: 11:19 bd 10/16 09:17 Order name: EKG; Complete Time: 09:18 cp 10/16 09:17 Order name: Cardiac monitoring; Complete Time: 10:24 cp 10/16 09:17 Order name: EKG - Nurse/Tech; Complete Time: 09:56 cp 10/16 09:17 Order name: IV Saline Lock; Complete Time: 10:24 cp 10/16 09:17 Order name: Labs collected and sent; Complete Time: 10:24 cp 10/16 09:17 Order name: O2 Per Protocol; Complete Time: 09:48 cp 10/16 09:17 Order name: O2 Sat Monitoring; Complete Time: 09:48 cp 10/16 09:17 Order name: Urine Dipstick-Ancillary (obtain specimen); Complete Time: 10:49 cp 10/16 09:17 Order name: Urine Test (obtain specimen); Complete Time: 10:49 cp 10/16 09:17 Order name: Orthostatics; Complete Time: 10:32 cp EC:56 Rate is 74 beats/min. Rhythm is regular. WI interval is normal. QRS interval is normal. cp QT interval is normal. T waves are Inverted in lead aVR. Interpreted by me. Reviewed by me. Administered Medications: 10:48 Drug: NS 0.9% 500 ml Route: IV; Rate: bolus; Site: right antecubital; tw2 12:05 Follow up: Response: No adverse reaction; IV Status: Completed infusion; IV Intake: tw2 500ml 10:49 Drug: Tylenol 1000 mg Route: PO; tw2 11:21 Follow up: Response: No adverse reaction; Pain is decreased tw2 Disposition: 12:41 Co-signature as Attending Physician, Castillo Watson MD I agree with the assessment and kdr plan of care. Disposition Summary: 10/16/21 11:35 Discharge Ordered Location: Home cp Problem: new cp Symptoms: have improved cp Condition: Stable cp Diagnosis - Syncope Near cp - Palpitations cp - Headache cp Followup: cp - With: Private Physician - When: 2 - 3 days - Reason: Recheck today's complaints Followup: cp - With: Sam Glass MD - When: 2 - 3 days - Reason: Recheck today's complaints Discharge Instructions: - General Headache Without Cause cp - Near-Syncope cp - Discharge Summary Sheet tw2 - Palpitations cp - Aspirin and Your Heart cp - Ambulatory Cardiac Monitoring cp Forms: - Medication Reconciliation Form cp - Thank You Letter cp - Antibiotic Education cp - Prescription Opioid Use cp - Work release form tw2 Signatures: Dispatcher [employer] EDMS Castillo Watson MD MD [facility] Becca Napier RN RN Bhupendra Clifton PA PA cp Aaliyah Ortega, RN RN tw2 Corrections: (The following items were deleted from the chart) 09:28 09:26 Home Meds: hydroxizine; [facility] 10/17 10:17 10:16 Differential Diagnosis: cardiac arrhythmia, cerebrovascular accident, drug cp effect, GI bleed, idiopathic syncope, , cp
[2021-10-16 12:52] VITALS: TEMP 97.2; O2SAT 98
[2021-10-16 12:55] VITALS: BP 104/58
--- NOTE | 2021-10-17 13:48 | EKG ---
Test Date: 2021-10-16 Test Time: 09:50:53 Production Generalist: EMELINA MEASUREMENT RESULTS: Intervals: Rate: 74 AK: 148 QRSD: 80 QT: 368 QTc: 408 [place]: P: 53 AK: 148 QRS: 27 T: 44 INTERPRETIVE STATEMENTS: Normal sinus rhythm with sinus arrhythmia Cannot rule out Anterior infarct, age undetermined Abnormal ECG No previous ECG available for comparison Electronically Signed On 10-17-21 13:46:04 CDT by Sam Glass
== END 2021-10-16 12:06 | disposition home or self-care (01) ==
LOC: ER 09:04
DX: R55 Syncope and collapse (principal); R00.2 Palpitations; R51.9 Headache, unspecified; R07.9 Chest pain, unspecified; R73.03 Prediabetes; Z91.048 Other nonmedicinal substance allergy status
CPT/HCPCS: 93005; 85025; 80048; 36415; 83735; 81025; 85610; 82947; 85379; 80076; 81003; 84484; 70450; 71045; 93970; 96360; 99284; J7040